=== PATIENT | male | born 1935 | race Caucasian/White ===

== ENCOUNTER 2018-08-01 03:26 | Emergency (ER) | payer MEDICARE, OTHER ==
[2018-08-01] MEDS ORDERED: Adacel Vial IM ONE ×2 (03:38→03:48)
--- NOTE | 2018-08-01 03:41 | ERPHSYRPT ---
- History of Present Illness Time Seen by Provider: 08/01/18 03:36 Source: patient Exam Limitations: no limitations (") Physician History: You have the patient is an 83-year-old male complaining that he lost his balance when he got up out of bed to use the bathroom. He fell striking the top of his forehead against the door frame causing a skin tear with bleeding. He did not lose consciousness. He is on aspirin for a blood thinner. His neck hurts but not badly. His last tetanus vaccination is unknown. His past medical history significant for HTN, GERD, and high cholesterol. Occurred: just prior to arrival Reason for Fall: lost balance, fell from standing pos Injuries/Pain Location: head, neck Loss of Consciousness: no loss of consciousness Quality: aching Severity of Pain-Max: mild Severity of Pain-Current: mild Modifying Factors: Improves With: nothing Associated Symptoms (Fall): headache, neck pain, No confusion, No lightheadedness, No slurred speech, No trouble walking, No vomiting Allergies/Adverse Reactions: No Known Drug Allergies Allergy (Verified 08/17/12 11:43) Home Medications: Amlodipine Besylate 10 mg [Norvasc 10 MG] DAILY 08/17/12 [History] Aspirin [Aspir 81] DAILY 08/17/12 [History] Flaxseed [Flaxseed Oil] DAILY 08/17/12 [History] Lisinopril [Prinivil] DAILY 08/17/12 [History] [place]-3 Fatty Acids/Fish Oil [Fish Oil 1,000 mg Capsule] DAILY 08/17/12 [History ] Omeprazole DAILY 08/17/12 [History] Pravastatin Sodium [Pravachol] HS 08/17/12 [History] Hx Influenza Vaccination/Date Given: Yes Hx Pneumococcal Vaccination/Date Given: Yes - Review of Systems Constitutional: No Fever, No Chills Eyes: No Symptoms Ears, Nose, & Throat: No Symptoms Respiratory: No Cough, No Dyspnea Cardiac: No Chest Pain, No Edema, No Syncope Abdominal/Gastrointestinal: No Abdominal Pain, No Nausea, No Vomiting, No Diarrhea Genitourinary Symptoms: No Dysuria Musculoskeletal: Fall, Injury Skin: Skin Lesions (skin tear) Neurological: Headache Psychological: No Symptoms Endocrine: No Symptoms Hematologic/Lymphatic: No Symptoms Immunological/Allergic: No Symptoms All Other Systems: Reviewed and Negative - Past Medical History Pertinent Past Medical History: Yes Neurological History: No Pertinent History ENT History: No Pertinent History Cardiac History: High Cholesterol, Hypertension Respiratory History: Emphysema Endocrine Medical History: No Pertinent History Musculoskeletal History: No Pertinent History GI Medical History: No Pertinent History History: No Pertinent History Psycho-Social History: No Pertinent History Male Reproductive Disorders: No Pertinent History - Past Surgical History Past Surgical History: Yes Neuro Surgical History: No Pertinent History Cardiac: Cardiac Catheterization Respiratory: No Pertinent History Gastrointestinal: Hernia Repair Genitourinary: Kidney Surgery Musculoskeletal: No Pertinent History Male Surgical History: No Pertinent History Other Surgical History: cyst removed from kidney - Social History Smoking Status: Never smoker Exposure to second hand smoke: Yes Drug Use: none - Nursing Vital Signs Nursing Vital Signs: Initial Vital Signs Temperature 97.5 F 08/01/18 03:26 Pulse Rate 62 08/01/18 03:26 Respiratory Rate 18 08/01/18 03:26 Blood Pressure 133/70 08/01/18 03:26 O2 Sat by Pulse Oximetry 95 08/01/18 03:26 Pain Scale Pain Intensity 3 - [place] Coma Score Best Eye Response ([place]): (4) open spontaneously Best Verbal Response ([place]): (5) oriented Best Motor Response ([place]): (6) obeys commands [place] Total: 15 - Physical Exam General Appearance: no apparent distress, alert Head Injury: lacerations (0.5 x 3 cm skin tear to upper forehead), tenderness Eye Exam: PERRL/EOMI ENT Exam: airway nml Neck Exam: normal inspection, No tenderness Respiratory/Chest Exam: normal breath sounds, No chest tenderness, No respiratory distress Cardiovascular Exam: normal heart sounds, regular rate/rhythm Gastrointestinal Exam: soft, No tenderness, No distention, No guarding, No ecchymosis Rectal Exam: not done Back Exam: normal inspection, No vertebral tenderness Extremity Exam: normal inspection, normal range of motion, pelvis stable, No deformities Neurologic Exam: alert, oriented x 3, cooperative, sensation nml, No motor deficits Skin Exam: normal color, warm, dry, abrasion (3 cm circular abrasion over left patella), laceration (skin tear to upper forehead) SpO2 Interpretation: normal Oxygen Delivery: Room Air - CT Exams Head CT Interpretation: Negative, Tele-radiologist Report (Per Dr Yanez), No Fracture, No/Intracranial Hemorrhag Cervical Spine CT Interpretation: Negative, Tele-radiologist Report (per Dr Yanez), No Fracture, No Subluxation Ordered Tests: Active Orders 24 hr Category Date Time Status Wound Care STAT Care 08/01/18 03:38 Active CERVICAL SPINE WO CONTRAST [CT] Stat Exams 08/01/18 03:38 Taken HEAD WITHOUT CONTRAST [CT] Stat Exams 08/01/18 03:38 Taken Medication Summary Discontinued Medications Generic Name Dose Route Start Last Admin Trade Name Freq PRN Reason Stop Dose Admin Diphtheria/Tetanus/Acell Pertussis 0.5 ml 08/01/18 03:38 08/01/18 03:49 Adacel Vial IM 08/01/18 03:39 0.5 ml .ONCE ONE Administration Diphtheria/Tetanus/Acell Pertussis Confirm 08/01/18 03:48 Adacel Vial Administered 08/01/18 03:49 Dose 0.5 ml IM .STK-MED ONE - Progress Progress: unchanged Progress Note: 08/01/18 05:24 Pt declines analgesics. Counseled pt/family regarding: diagnosis, rad results - Departure Time of Disposition: 05:25 Departure Disposition: Home Clinical Impression: Fall, Head contusion, Skin tear Condition: Stable Critical Care Time: No Referrals: FAISAL MCLEAN [Primary Care Provider] - Additional Instructions: You had a fall tonight that resulted in a head contusion and a skin tear area skin tear was repaired with Dermabond and Steri-Strips. The CT scan of your head and neck were both negative. Take Tylenol 1000 mg every 6 hours as needed for pain. You were given a tetanus vaccination. Follow-up as needed with your primary medical doctor.
[2018-08-01 05:37] VITALS: BP 178/83; PULSE 83; O2SAT 98
--- NOTE | 2018-08-01 08:49 | XRAY ---
Indication: Pain following fall. Multiple contiguous axial images obtained through the head without contrast. Comparison: None. Age-appropriate global atrophy and moderate periventricular degenerative micro-ischemia bilaterally. No acute intracranial hemorrhage, abnormal extra-axial fluid collection, or mass effect. Fourth ventricle is midline without hydrocephalus. Bony calvarium intact. Visualized paranasal sinuses and mastoid air cells are clear. Impression: Nonacute senile brain. Comment: Preliminary interpretation was made by [facility]. No discrepancy. CT DI 60.80
--- NOTE | 2018-08-01 08:53 | XRAY ---
Indication: Pain following fall. Multiple contiguous axial images obtained through the cervical spine. Sagittal and coronal reformatted images obtained. Comparison: None. Age-appropriate osteopenia. Axial images negative for acute fracture, suspicious bony lesions, or spinal canal stenosis. Mild C3-C6 degenerative endplate spurring and mild multilevel bilateral degenerative facet arthropathy. Also moderate atlantoaxial degenerative changes. Sagittal and coronal reformatted images demonstrates straightening of the mid cervical lordosis, positional versus paraspinal spasm. C3-C6 disc space narrowing. No acute compression fracture, subluxation, or jumped facet. Normal appearing craniocervical junction. Visualized noncontrasted soft tissues demonstrates minimal carotid calcifications bilaterally and tiny right apical pulmonary calcified granuloma. CT head reported separately. Impression: 1. Negative acute fracture/subluxation. Mid cervical lordotic straightening, positional versus paraspinal spasm. 2. Incidental osteopenia and multilevel degenerative changes. Comment: Preliminary interpretation was made by [facility]. No critical discrepancy. CT DI 66.87
== END 2018-08-01 05:36 | disposition home or self-care (01) ==
LOC: ED 03:26
DX: S00.93XA Contusion of unspecified part of head, initial encounter (principal); S01.01XA Laceration without foreign body of scalp, initial encounter; R51 Headache; M54.2 Cervicalgia; S80.212A Abrasion, left knee, initial encounter; W01.198A Fall on same level from slipping, tripping and stumbling with subsequent striking against other object, initial encounter; Y93.89 Activity, other specified; Y92.003 Bedroom of unspecified non-institutional (private) residence as the place of occurrence of the external cause; Z79.82 Long term (current) use of aspirin; Z79.899 Other long term (current) drug therapy
CPT/HCPCS: 12002; 70450; 72125; 90471; 90715; 99284

== ENCOUNTER 2019-08-14 01:11 | Emergency (ER) | payer MEDICARE, OTHER ==
[2019-08-14] MEDS ORDERED: Sodium Chloride 3 ML UD NEBULES IH ONE (01:50)
[2019-08-14] MEDS ORDERED: Racepinephrine INH Solution 2.25% IH ONE (01:50)
[2019-08-14] MEDS: Racepinephrine INH Solution 2.25% IH ONE (01:51)
[2019-08-14] MEDS ORDERED: solu-MEDROL 125 MG ONE ×2 (02:00→06:12)
[2019-08-14] MEDS: solu-MEDROL 125 MG IV ONE ×2 (02:02→06:13)
[2019-08-14 02:15] LABS: Hematocrit 39.4 % (42-50); Hemoglobin 13.1 gm/dl (12.5-18.0); Mean Corpuscular Hemoglobin 32.3 pg (26-32); Mean Corpuscular Hgb Concent. 33.2 g/dl (32-36); Mean Platelet Volume 9.9 fl (6-9.5); Platelet Count 207 K/mm3 (150-450); Red Blood Count 4.06 M/mm3 (4.1-5.6); Red Cell Distribution Width 12.7 % (11.5-14.0); White Blood Count 8.7 K/mm3 (4.0-10.5)
[2019-08-14 02:15] LABS: INFLUENZA A NEGATIVE (NEGATIVE); INFLUENZA B NEGATIVE (NEGATIVE); RESPIRATORY SYNCTIAL VIRUS NEGATIVE (Negative)
[2019-08-14 02:25] LABS: ALBUMIN 3.5 g/dL (3.5-5.0); ALKALINE PHOSPHATASE 59 U/L (38-126); ANION GAP 11.4 MEQ/L (5-15); BLOOD UREA NITROGEN 21 mg/dL (9-20); CHLORIDE 103 mmol/L (98-107); Carbon Dioxide 25 mmol/L (22-30); Creatinine 1 1.02 mg/dL (0.66-1.25); Glucose 114 mg/dL (74-106); Potassium 3.7 mmol/L (3.5-5.1); SGOT/AST 18 U/L (17-59); SGPT/ALT 11 U/L (0-50); SODIUM 136 mmol/L (137-145); Total Protein 7.1 g/dL (6.3-8.2)
[2019-08-14] MEDS ORDERED: ROCEPHIN 1 Gm-D5w 50 ml Bag** 1 G/50 ML IVPB IV ONE (03:26)
[2019-08-14] MEDS: ROCEPHIN 1 Gm-D5w 50 ml Bag** 1 G/50 ML IVPB IV STA (03:43)
[2019-08-14 04:39] LABS: BAND 1 % (0.0-2.0); Basophil 1 % (0.0-1.0); Eosinophil 8 % (0.00-3.0); Lymphocytes 34 % (24-44); Monocyte 4 % (0.0-12.0); Neutrophils 52 % (36.-66.); Total Cells Counted 100
[2019-08-14 04:40] LABS: Platelet Estimate NORMAL (NORMAL); Toxic Granulation RARE
[2019-08-14 06:04] VITALS: O2SAT 93
--- NOTE | 2019-08-14 06:18 | ERPHSYRPT ---
- History of Present Illness Time Seen by Provider: 08/14/19 01:50 Patient Subjective Stated Complaint: pt states that he was having trouble swollowing, pt states that he felt that something stuck in his throat, pt states that he threw up a brownish glob, pt states that he went [facility] for a bad tooth, pt state he was put on antibiotic, pt states that he live by himself and it scarred him because he could not catch his breath Triage Nursing Assessment: pt ambulated into the er, pt is axo x4, pt states unable to swollow, pt has swollen uvula, lung sounds clear, pt hypertensive Physician History: patient presents with a choking sensation in his throat and the feeling that his throat was swollen. He is on clindamycin for a recent dental infection but he describes swelling of the lips and mouth more consistent perhaps with angioedema. Patient is on lisinopril Timing/Duration: abrupt onset Severity: severe ENT Location: mouth, throat Prearrival Treatment: no prearrival treatment Modifying Factors: Improves With: nothing Associated Symptoms: facial pain/swelling Allergies/Adverse Reactions: No Known Drug Allergies Allergy (Verified 08/14/19 02:13) Home Medications: Amlodipine Besylate 10 mg [Norvasc 10 MG] 10 mg PO DAILY 08/17/12 [History] Aspirin [Aspir 81] DAILY 08/17/12 [History] Lisinopril [Prinivil] 10 mg PO BID 08/17/12 [History] Omeprazole DAILY 08/17/12 [History] Pravastatin Sodium [Pravachol] HS 08/17/12 [History] Clindamycin HCl 300 mg PO Q6H 08/14/19 [History] Umeclidinium Brm/Vilanterol Tr [Anoro Ellipta 62.5-25 Mcg INH] 1 puff IH DAILY 08/14/19 [History] Hx Tetanus, Diphtheria Vaccination/Date Given: Yes Hx Influenza Vaccination/Date Given: Yes Hx Pneumococcal Vaccination/Date Given: Yes - Review of Systems Constitutional: No Fever, No Chills Eyes: No Symptoms Ears, Nose, & Throat: Throat Swelling Respiratory: No Cough, No Dyspnea Cardiac: No Chest Pain, No Edema, No Syncope Abdominal/Gastrointestinal: No Abdominal Pain, No Nausea, No Vomiting, No Diarrhea Genitourinary Symptoms: No Dysuria Musculoskeletal: No Back Pain, No Neck Pain Skin: No Rash Neurological: No Dizziness, No Focal Weakness, No Sensory Changes Psychological: No Symptoms Endocrine: No Symptoms All Other Systems: Reviewed and Negative - Past Medical History Pertinent Past Medical History: Yes Neurological History: No Pertinent History ENT History: No Pertinent History Cardiac History: High Cholesterol, Hypertension Respiratory History: Emphysema Endocrine Medical History: No Pertinent History Musculoskeletal History: No Pertinent History GI Medical History: No Pertinent History History: No Pertinent History Psycho-Social History: No Pertinent History Male Reproductive Disorders: No Pertinent History - Past Surgical History Past Surgical History: Yes Neuro Surgical History: No Pertinent History Cardiac: Cardiac Catheterization Respiratory: No Pertinent History Gastrointestinal: Hernia Repair Genitourinary: Kidney Surgery Musculoskeletal: No Pertinent History Male Surgical History: No Pertinent History Other Surgical History: cyst removed from kidney - Social History Smoking Status: Never smoker Exposure to second hand smoke: No Drug Use: none Patient Lives Alone: No - Nursing Vital Signs Nursing Vital Signs: Initial Vital Signs Temperature 97.9 F 08/14/19 01:35 Pulse Rate 71 08/14/19 01:35 Respiratory Rate 16 08/14/19 01:35 Blood Pressure 148/88 08/14/19 01:35 O2 Sat by Pulse Oximetry 95 08/14/19 01:35 - Physical Exam General Appearance: mild distress, alert Eye Exam: bilateral eye: PERRL, EOMI Nasal Exam: normal inspection Throat Exam: moist mucus membranes, uvula swelling, No tonsillar exudate Neck Exam: supple Cardiovascular/Respiratory Exam: normal breath sounds, regular rate/rhythm Abdominal Exam: non-tender, soft Neurologic Exam: alert, oriented x 3, sensation nml, No motor deficits Skin Exam: normal color, warm, dry SpO2: 93 - Course Nursing assessment & vital signs reviewed: Yes Ordered Tests: Active Orders 24 hr Category Date Time Status CHEST 1 VIEW (PORTABLE) Stat Exams 08/14/19 01:42 Taken CBC W DIFF Stat Lab 08/14/19 02:11 Completed CMP Stat Lab 08/14/19 02:11 Completed Manual Differential NC Stat Lab 08/14/19 02:11 Completed Respiratory Therapy Assessment DAILY RT 08/14/19 01:55 Active Medication Summary Generic Name Dose Route Start Last Admin Trade Name Freq PRN Reason Stop Dose Admin Methylprednisolone Sodium Succinate 125 mg 08/14/19 06:11 Solu-Medrol 125 Mg IV 08/14/19 06:12 STAT ONE Discontinued Medications Generic Name Dose Route Start Last Admin Trade Name [place] PRN Reason Stop Dose Admin Epinephrine 0.5 ml 08/14/19 01:40 08/14/19 01:51 Racepinephrine Inh Solution 2.25% IH 08/14/19 01:41 0.5 ml STAT ONE Administration Epinephrine Confirm 08/14/19 01:50 Racepinephrine Inh Solution 2.25% Administered 08/14/19 01:51 Dose 0.5 ml IH .STK-MED ONE Ceftriaxone Sodium/Dextrose 1 g in 50 mls @ 100 mls/hr 08/14/19 03:17 04:55 Rocephin 1 Gm-D5w 50 Ml Bag IV 08/14/19 03:46 Infused STAT STA Infusion Ceftriaxone Sodium/Dextrose Confirm 08/14/19 03:26 Rocephin 1 Gm-D5w 50 Ml Bag Administered 08/14/19 03:27 Dose 1 g in 50 mls @ ud IV .STK-MED ONE Methylprednisolone Sodium Succinate 125 mg 08/14/19 01:44 08/14/19 02:02 Solu-Medrol 125 Mg IV 08/14/19 01:45 125 mg STAT ONE Administration Methylprednisolone Sodium Succinate Confirm 08/14/19 02:00 Solu-Medrol 125 Mg Administered 08/14/19 02:01 Dose 125 mg .ROUTE .STK-MED ONE Sodium Chloride Confirm 08/14/19 01:50 Sodium Chloride 3 Ml Ud Nebules Administered 08/14/19 01:51 Dose 3 ml IH .STK-MED ONE Lab/Rad Data: Laboratory Result Diagrams 08/14/19 02:11 08/14/19 02:11 Laboratory Results 08/14/19 08/14/19 08/14/19 Range/Units 02:11 02:11 01:41 WBC 8.7 (4.0-10.5) K/mm3 RBC 4.06 L (4.1-5.6) M/mm3 Hgb 13.1 (12.5-18.0) gm/dl Hct 39.4 L (42-50) % MCV 97.0 (78-100) fl MCH 32.3 H (26-32) pg MCHC 33.2 (32-36) g/dl RDW 12.7 (11.5-14.0) % Plt Count 207 (150-450) K/mm3 MPV 9.9 H (6-9.5) fl Segmented Neutrophils 52 (36.-66.) % Band Neutrophils 1 (0.0-2.0) % Lymphocytes (Manual) 34 (24-44) % Monocytes (Manual) 4 (0.0-12.0) % Eosinophils (Manual) 8 H (0.00-3.0) % Basophils (Manual) 1 (0.0-1.0) % Toxic Granulation RARE Platelet Estimate NORMAL (NORMAL) RBC Morphology NORMAL Sodium 136 L (137-145) mmol/L Potassium 3.7 (3.5-5.1) mmol/L Chloride 103 (98-107) mmol/L Carbon Dioxide 25 (22-30) mmol/L Anion Gap 11.4 (5-15) MEQ/L BUN 21 H (9-20) mg/dL Creatinine 1.02 (0.66-1.25) mg/dL Estimated GFR > 60.0 ML/MIN Glucose 114 H (74-106) mg/dL Calcium 9.0 (8.4-10.2) mg/dL Total Bilirubin 0.50 (0.2-1.3) mg/dL AST 18 (17-59) U/L ALT 11 (0-50) U/L Alkaline Phosphatase 59 (38-126) U/L Serum Total Protein 7.1 (6.3-8.2) g/dL Albumin 3.5 (3.5-5.0) g/dL Influenza Type A Ag (NEGATIVE) Influenza Type B Ag (NEGATIVE) RSV (PCR) (Negative) Group A Strep Antibody NEGATIVE (NEGATIVE) 08/14/19 Range/Units 01:41 WBC (4.0-10.5) K/mm3 RBC (4.1-5.6) M/mm3 Hgb (12.5-18.0) gm/dl Hct (42-50) % MCV (78-100) fl MCH (26-32) pg MCHC (32-36) g/dl RDW (11.5-14.0) % Plt Count (150-450) K/mm3 MPV (6-9.5) fl Segmented Neutrophils (36.-66.) % Band Neutrophils (0.0-2.0) % Lymphocytes (Manual) (24-44) % Monocytes (Manual) (0.0-12.0) % Eosinophils (Manual) (0.00-3.0) % Basophils (Manual) (0.0-1.0) % Toxic Granulation Platelet Estimate (NORMAL) RBC Morphology Sodium (137-145) mmol/L Potassium (3.5-5.1) mmol/L Chloride (98-107) mmol/L Carbon Dioxide (22-30) mmol/L Anion Gap (5-15) MEQ/L BUN (9-20) mg/dL Creatinine (0.66-1.25) mg/dL Estimated GFR ML/MIN Glucose (74-106) mg/dL Calcium (8.4-10.2) mg/dL Total Bilirubin (0.2-1.3) mg/dL AST (17-59) U/L ALT (0-50) U/L Alkaline Phosphatase (38-126) U/L Serum Total Protein (6.3-8.2) g/dL Albumin (3.5-5.0) g/dL Influenza Type A Ag NEGATIVE (NEGATIVE) Influenza Type B Ag NEGATIVE (NEGATIVE) RSV (PCR) NEGATIVE (Negative) Group A Strep Antibody (NEGATIVE) - Progress Progress: improved - Departure Departure Disposition: Home Clinical Impression: Angioedema Condition: Good Critical Care Time: No Referrals: FAISAL MCLEAN [Primary Care Provider] - Additional Instructions: Stop use of Lisinopril. See Dr Mclean within a week. Return to ER for any problem Prescriptions: Cephalexin Mh 500 mg [Keflex 500 mg] 500 mg PO TID #21 capsule Metoprolol Succinate 25 mg Xl* [Toprol-Xl 25MG Tablets] 25 mg PO DAILY 30 Days #30 tab Prednisone 5 mg [Deltasone 5 mg] 5 mg PO TID #12 tablet
[2019-08-14 06:40] VITALS: BP 169/75; PULSE 69
--- NOTE | 2019-08-14 09:31 | XRAY ---
Indication: Sore throat. Comparison: August 16, 2011. Portable chest underinflated again with bibasilar subsegmental atelectasis/scarring and right apical calcified granuloma. No focal infiltrate, consolidation, or large effusion. Heart is not enlarged. Bony thorax intact again with mild degenerative changes. Impression: Nonacute underinflated chest with chronic features.
== END 2019-08-14 06:40 | disposition home or self-care (01) ==
LOC: ED 01:11
DX: T78.3XXA Angioneurotic edema, initial encounter (principal)
CPT/HCPCS: 36415; 71045; 80053; 85025; 87631; 87651; 94640; 96374; 99284; J0696; J2930

== ENCOUNTER 2019-08-28 07:25 | Day surgery (SDC) | payer MEDICARE, OTHER ==
[~2019-08-28 07:25] MED LIST: Ak-Dilate OPHTHALMIC*** 1.065 ML, Cyclogyl 1% OPHTH SOL 5 ML 1.065 ML, GATIFLOXACIN 0.5... OP ONE; Lactated Ringers 1,000 ML IV SCH; NON-FORMULARY ITEM OP ONE; TETRACAINE 0.5% STERI-UNIT SOL OP ONE
[2019-08-28] MEDS ORDERED: Lactated Ringers 1,000 ML IV ONE (07:38)
[2019-08-28] MEDS ORDERED: ACETAZOLAMIDE 250 MG TABLET PO ONE (09:00)
[2019-08-28] MEDS ORDERED: Zofran 4 MG/2 ML VIAL IV PRN (09:00)
[2019-08-28] MEDS ORDERED: NON-FORMULARY ITEM IJ ONE (10:00)
[2019-08-28] MEDS ORDERED: BSS 500 ML, Fortaz/Tazicef 1 GM** 0.2 G IO ONE ×2 (10:00)
[2019-08-28] MEDS ORDERED: LIDOCAINE HCL 1% AMPUL 5 ML IJ ONE (10:00)
[2019-08-28] MEDS ORDERED: BETADINE 5% OPHTHALMIC 30 ML OP ONE (10:00)
[2019-08-28] MEDS ORDERED: Epinephrine Preservative Free 1 MG/ML INTRAOP ONE (10:00)
[2019-08-28] MEDS ORDERED: DIPRIVAN 200 MG/20 ML IV ONE ×2 (10:24→10:38)
[2019-08-28] MEDS ORDERED: APRESOLINE 20 MG/ML INJ IV ONE (11:41)
--- NOTE | 2019-08-28 11:49 | OP ---
DATE/TIME OF OPERATION: 08/28/2019 1024 TIME DICTATED: 1130 PREOPERATIVE DIAGNOSIS: Senile cataract of left eye. POSTOPERATIVE DIAGNOSIS: Senile cataract of left eye. SURGEON: Alanis Bird MD VISITING HOUSEKEEPER: None. OPERATION: Cataract extraction of left eye with an intraocular lens implant. STANDARD __X___ COMPLEX ANESTHESIA: MAC. ___X__ Monitored anesthesia care in combination with topical and intra-cameral anesthesia (because of the established specific risk of reflux, arrhythmias, or an anxiety attack associated with ocular manipulation as well as difficulty of the telesales specialist to manage such potentially catastrophic events while simultaneously attempting to complete the surgical procedure, it was deemed necessary for the patient's safety to have an anesthesiologist or a nurse hide worker present during the procedure whenever possible. The anesthesiologist or the nurse hide worker was utilized to monitor and regulate the intravenous sedation of the patient, so the patient was cooperative, relaxed, and comfortable). Topical anesthesia using Tetracaine eye drops together with intra cameral anesthesia using Lidocaine 1% MPF. The nurse was utilized to monitor the patient. ANESTHESIA PROVIDER: Art James CRNA. COMPLICATIONS: None. BLOOD LOSS: None. INDICATIONS: The patient is undergoing cataract surgery in the hopes of eliminating the visual complaints and difficulty. PROCEDURE: After arriving at the facility's outpatient surgery area, an IV was started; the patient was given 5 mg of p.o. Versed. (If an anesthesia provider was not monitoring the patient) The patient was then given topical anesthetic Tetracaine eye drops. A cotton pellet was soaked into a solution of a combination of Zymaxid 0.5%, Pieter-Synephrine 2.5% and Ocufen (other drops might have been substituted referenced in the patient's record). The pellet was inserted by the RN into the lower conjunctival cul-de-sac with a sterile forceps and left for 20 minutes. The pellet was then removed by the RN with a sterile forceps before taking the patient to the operating room. The preoperative area nurse identified the patient and marked the correct eye to be operated on. I identified the correct eye to be operated on and marked it appropriately in the outpatient surgery area. The patient was then taken into the operating room. Tetracaine eye drops were installed again in the correct eye. The eyelids and the lashes and the lid margins were scrubbed with Betadine solution. One drop of the diluted Betadine solution was placed in the conjunctival cul-de-sac for 45 seconds and then was irrigated. A drop of Tetracaine Gel was placed in the conjunctival cul-de-sac. The patient's forehead was taped to secure it during the procedure. The patient was monitored. The patient was then draped in the usual way for this procedure. An eye speculum was used to separate the eyelids. The eye was then fixated and a temporal 2.5 mm incision was made in the clear cornea temporally at the limbus. Through the incision, 0.25 cc of 1% non-preserved lidocaine was injected into the anterior chamber for intracameral anesthesia. The anterior chamber was then filled with viscoelastic. The pupil was small. I felt that it would be safer to mechanically dilate the pupil. A Malyugin ring was used at this point which dilated the pupil. That was removed at the end of the procedure prior to aspiration of the viscoelastic from the anterior chamber and posterior to the intraocular lens implant. The cataract had a great amount of cortical changes. That rendered seeing the anterior capsule difficult for a safe performance of an anterior capsulotomy. I injected an air bubble into the anterior chamber. I then injected 1 ML of vision blue solution into the anterior chamber. The vision blue solution was irrigated from the anterior chamber after 30 seconds. The anterior capsule was stained which facilitated performing the anterior capsulotomy safely. After that was completed, a cystotome was introduced into the anterior chamber and a round anterior capsulotomy was performed. The capsule was removed by a forceps. Hydrodissection was next carried utilizing a 25-gauge cannula and balanced salt solution to delineate the cortical material from the capsule and the nucleus from the cortical material. The nucleus was rotated freely into the capsular bag with no difficulty. The phaco tip of the [employer] Phacoemulsifier was introduced into the anterior chamber and two grooves were made into the nucleus 90 degrees apart. Using two spatulas resulted into the nucleus being fractured into four quadrants. The phaco tip was then used to remove each quadrant of the nucleus. Viscoelastic was used during this process to protect the corneal endothelium. Once the entire nucleus was removed, the phaco tip then was removed and the irrigation tip was introduced into the eye and the cortex was removed. The posterior capsule was polished. It was noticed that there was a tear into the posterior capsule with few vitreous strands into the pupil plan. An anterior vitrectomy was performed. A 21.00 diopter, [id number], posterior chamber lens implant, was inspected and found to be grossly normal. The implant was inserted into the implant injector cartridge; Viscoelastic again was introduced into the anterior chamber, which filled the capsular bag. The implant injector's cartridge tip was placed at the limbal wound and the posterior chamber implant was released into the capsular bag and rotated appropriately. The implant was found to be into the capsular bag and it was centered. __X__ 0.2 ml of Tri-Moxi was introduced via 27 gauge cannula into the vitreous cavity through the ciliary processes. Viscoelastic was aspirated from the anterior chamber and posterior to the intraocular lens implant from the capsular bag using the irrigating tip. The anterior chamber was irrigated and filled with 5 cc antibiotic solution (500 cc of BSS plus 2 ml of Fortaz 100 mg/ml) ( if patient was not allergic to the medication). The lips of the corneal incision were hydrated using BSS solution. The anterior chamber was checked and found to be water tight. One drop each of antibiotic, steroid and NSAID drops (refer to chart for drops used) were placed in the conjunctival cul-de-sac of the operated eye. Patient tolerated the procedure quite well and left the operating room in satisfactory condition. DISCHARGE SUMMARY: The patient was released in stable condition. The patient and those with the patient were given an instruction sheet as of how to care for the eye after surgery as well as counseling on any abnormal laboratory studies by the postoperative RN. The patient was also given an appointment card for follow-up in the office and is to call immediately for any difficulties including but not limited to pain in the eye, decreased vision, discharge from the eye, headache and or fever. DISCHARGE DIAGNOSIS: Pseudophakia of left eye.
[2019-08-28 12:04] VITALS: O2SAT 95
[2019-08-28 12:19] VITALS: BP 146/75; PULSE 68
== END 2019-08-28 12:45 | disposition home or self-care (01) ==
LOC: SDC 07:25
PROVIDERS: ATTEND Ophthalmology
DX: H25.812 Combined forms of age-related cataract, left eye (principal); J44.9 Chronic obstructive pulmonary disease, unspecified; I10 Essential (primary) hypertension; E78.00 Pure hypercholesterolemia, unspecified; E07.9 Disorder of thyroid, unspecified; Z79.899 Other long term (current) drug therapy
CPT/HCPCS: 99100; C1780; J0171; J0360; J2704; A9270-GY

== ENCOUNTER 2019-10-02 07:57 | Day surgery (SDC) | payer MEDICARE, OTHER ==
[2019-10-02] MEDS ORDERED: Lactated Ringers 1,000 ML IV ONE (08:04)
[2019-10-02] MEDS ORDERED: Zofran 4 MG/2 ML VIAL IV PRN (09:00)
[2019-10-02] MEDS ORDERED: ACETAZOLAMIDE 250 MG TABLET PO ONE (09:00)
[2019-10-02] MEDS ORDERED: Epinephrine Preservative Free 1 MG/ML INTRAOP ONE (10:00)
[2019-10-02] MEDS ORDERED: LIDOCAINE HCL 1% AMPUL 5 ML IJ ONE (10:00)
[2019-10-02] MEDS ORDERED: BETADINE 5% OPHTHALMIC 30 ML OP ONE (10:00)
[2019-10-02] MEDS ORDERED: BSS 500 ML, Fortaz/Tazicef 1 GM** 0.2 G IO ONE ×2 (10:00)
[2019-10-02] MEDS ORDERED: DIPRIVAN 200 MG/20 ML IV ONE (10:57)
[2019-10-02 12:12] VITALS: BP 169/96; PULSE 67; O2SAT 97
--- NOTE | 2019-10-02 13:52 | OP ---
DATE/TIME OF OPERATION: 10/02/2019 1057 TIME DICTATED: 1256 PREOPERATIVE DIAGNOSIS: Senile cataract of right eye. POSTOPERATIVE DIAGNOSIS: Senile cataract of right eye. SURGEON: Alanis Bird MD BRAKE RELINER: None. OPERATION: Cataract extraction of right eye with an intraocular lens implant. STANDARD __X__ COMPLEX ANESTHESIA: MAC. ___X___ Monitored anesthesia care in combination with topical and intra-cameral anesthesia (because of the established specific risk of reflux, arrhythmias, or an anxiety attack associated with ocular manipulation as well as difficulty of the software consultant to manage such potentially catastrophic events while simultaneously attempting to complete the surgical procedure, it was deemed necessary for the patient's safety to have an anesthesiologist or a nurse dean of education present during the procedure whenever possible. The anesthesiologist or the nurse dean of education was utilized to monitor and regulate the intravenous sedation of the patient, so the patient was cooperative, relaxed, and comfortable). Topical anesthesia using Tetracaine eye drops together with intra cameral anesthesia using Lidocaine 1% MPF. The nurse was utilized to monitor the patient. ANESTHESIA PROVIDER: Art James CRNA. COMPLICATIONS: None. BLOOD LOSS: None. INDICATIONS: The patient is undergoing cataract surgery in the hopes of eliminating the visual complaints and difficulty. PROCEDURE: After arriving at the facility's outpatient surgery area, an IV was started; the patient was given 5 mg of p.o. Versed. (If an anesthesia provider was not monitoring the patient) The patient was then given topical anesthetic Tetracaine eye drops. A cotton pellet was soaked into a solution of a combination of Zymaxid 0.5%, Pieter-Synephrine 2.5% and Ocufen (other drops might have been substituted referenced in the patient's record). The pellet was inserted by the RN into the lower conjunctival cul-de-sac with a sterile forceps and left for 20 minutes. The pellet was then removed by the RN with a sterile forceps before taking the patient to the operating room. The preoperative area nurse identified the patient and marked the correct eye to be operated on. I identified the correct eye to be operated on and marked it appropriately in the outpatient surgery area. The patient was then taken into the operating room. Tetracaine eye drops were installed again in the correct eye. The eyelids and the lashes and the lid margins were scrubbed with Betadine solution. One drop of the diluted Betadine solution was placed in the conjunctival cul-de-sac for 45 seconds and then was irrigated. A drop of Tetracaine Gel was placed in the conjunctival cul-de-sac. The patient's forehead was taped to secure it during the procedure. The patient was monitored. The patient was then draped in the usual way for this procedure. An eye speculum was used to separate the eyelids. The eye was then fixated and a temporal 2.5 mm incision was made in the clear cornea temporally at the limbus. Through the incision, 0.25 cc of 1% non-preserved lidocaine was injected into the anterior chamber for intracameral anesthesia. The anterior chamber was then filled with viscoelastic. The pupil was small. I felt that it would be safer to mechanically dilate the pupil. A Malyugin ring was used at this point which dilated the pupil. That was removed at the end of the procedure prior to aspiration of the viscoelastic from the anterior chamber and posterior to the intraocular lens implant. The cataract had a great amount of cortical changes. That rendered seeing the anterior capsule difficult for a safe performance of an anterior capsulotomy. I injected an air bubble into the anterior chamber. I then injected 1 ML of vision blue solution into the anterior chamber. The vision blue solution was irrigated from the anterior chamber after 30 seconds. The anterior capsule was stained which facilitated performing the anterior capsulotomy safely. After that was completed, a cystotome was introduced into the anterior chamber and a round anterior capsulotomy was performed. The capsule was removed by a forceps. Hydrodissection was next carried utilizing a 25-gauge cannula and balanced salt solution to delineate the cortical material from the capsule and the nucleus from the cortical material. The nucleus was rotated freely into the capsular bag with no difficulty. The phaco tip of the [employer] Phacoemulsifier was introduced into the anterior chamber and two grooves were made into the nucleus 90 degrees apart. Using two spatulas resulted into the nucleus being fractured into four quadrants. The phaco tip was then used to remove each quadrant of the nucleus. Viscoelastic was used during this process to protect the corneal endothelium. Once the entire nucleus was removed, the phaco tip then was removed and the irrigation tip was introduced into the eye and the cortex was removed. The posterior capsule was polished. It was noticed that there was a tear into the posterior capsule with few vitreous strands into the pupil plan. An anterior vitrectomy was performed. A 22.00 diopter, [id number], posterior chamber lens implant, was inspected and found to be grossly normal. The implant was inserted into the implant injector cartridge; Viscoelastic again was introduced into the anterior chamber, which filled the capsular bag. The implant injector's cartridge tip was placed at the limbal wound and the posterior chamber implant was released into the capsular bag and rotated appropriately. The implant was found to be into the capsular bag and it was centered. ___X__ 0.2 ml of Tri-Moxi was introduced via 27 gauge cannula into the vitreous cavity through the ciliary processes. Viscoelastic was aspirated from the anterior chamber and posterior to the intraocular lens implant from the capsular bag using the irrigating tip. The anterior chamber was irrigated and filled with 5 cc antibiotic solution (500 cc of BSS plus 2 ml of Fortaz 100 mg/ml) ( if patient was not allergic to the medication). The lips of the corneal incision were hydrated using BSS solution. The anterior chamber was checked and found to be water tight. One drop each of antibiotic, steroid and NSAID drops (refer to chart for drops used) were placed in the conjunctival cul-de-sac of the operated eye. Patient tolerated the procedure quite well and left the operating room in satisfactory condition. DISCHARGE SUMMARY: The patient was released in stable condition. The patient and those with the patient were given an instruction sheet as of how to care for the eye after surgery as well as counseling on any abnormal laboratory studies by the postoperative RN. The patient was also given an appointment card for follow-up in the office and is to call immediately for any difficulties including but not limited to pain in the eye, decreased vision, discharge from the eye, headache and or fever. DISCHARGE DIAGNOSIS: Pseudophakia of right eye.
== END 2019-10-02 12:32 | disposition home or self-care (01) ==
LOC: SDC 07:57
PROVIDERS: ATTEND Ophthalmology
DX: H25.9 Unspecified age-related cataract (principal); J44.9 Chronic obstructive pulmonary disease, unspecified; I10 Essential (primary) hypertension; K21.9 Gastro-esophageal reflux disease without esophagitis; E07.9 Disorder of thyroid, unspecified; E78.00 Pure hypercholesterolemia, unspecified
CPT/HCPCS: 99100; C1780; J0171; J2704; A9270-GY

== ENCOUNTER 2019-10-04 02:04 | Emergency (ER) | payer MEDICARE, OTHER ==
--- NOTE | 2019-10-04 02:15 | ERPHSYRPT ---
- History of Present Illness Time Seen by Provider: 10/04/19 03:40 Source: patient Exam Limitations: no limitations Physician History: Is an 84-year-old white male who out of bed and fell hitting his head on the corner of his bedside table. He did not lose consciousness. Patient is on some anticoagulation therapy. Patient does have a laceration on the side of his right confucianism. It bled initially but is not bleeding on arrival to the emergency department. Patient also suffered a skin tear to his right forearm. He has full range of motion of his right forearm and has no significant pain present. There is no active bleeding here. Timing/Duration: today Severity: mild Apparent Injury: yes (Laceration to the right confucianism region) Associated Symptoms: other (None) Chemical Exposure: No Trauma: Yes (Not to his right eye) Allergies/Adverse Reactions: No Known Drug Allergies Allergy (Verified 10/02/19 08:20) Home Medications: Aspirin [Aspir 81] 81 mg DAILY 08/17/12 [History] Omeprazole 40 mg DAILY 08/17/12 [History] Pravastatin Sodium [Pravachol] 40 mg HS 08/17/12 [History] Umeclidinium Brm/Vilanterol Tr [Anoro Ellipta 62.5-25 Mcg INH] 1 puff IH DAILY 08/14/19 [History] Albuterol Sulfate [Albuterol Sulfate Hfa] 8.5 gm IH DAILY 08/23/19 [History] B12/Levomefolate Calcium/B-6 [Foltx Tablet] 1 each PO DAILY 08/23/19 [History] Carvedilol 6.25 mg [Coreg 6.25 MG] 6.25 mg PO BID 08/23/19 [History] Cholecalciferol (Vitamin D3) [D3-2000] 125 mg PO DAILY 08/23/19 [History] Duloxetine HCl 30 mg [Cymbalta 30 MG Capsule] 30 mg PO DAILY 08/23/19 [ History] Levothyroxine Sodium 50 Mcg [Synthroid 50 Mcg] 50 mcg PO DAILY 08/23/19 [ History] [place] Fruit/Zinc Picoli [Saw [place] 450 mg Capsule] 450 mg DAILY [History] Calcium/Magnesium/Vitamin D3 [Bryn-Mag Complex 300-150 mg Tab] 1 each PO DAILY [History] Sennosides/Docusate Sodium [Dok Plus Tablet] 1 each PO BID 08/28/19 [History] polyethylene glycoL 3350 [Polyethylene Glycol 3350] 119 gm PO DAILY 08/28/19 [ History] Hydrochlorothiazide 12.5 mg PO DAILY 10/02/19 [History] Hx Tetanus, Diphtheria Vaccination/Date Given: Yes Hx Influenza Vaccination/Date Given: Yes Hx Pneumococcal Vaccination/Date Given: Yes - Review of Systems Constitutional: No Symptoms Eyes: No Symptoms Ears, Nose, & Throat: No Symptoms Respiratory: No Symptoms Cardiac: No Symptoms Abdominal/Gastrointestinal: No Symptoms Genitourinary Symptoms: No Symptoms Musculoskeletal: No Symptoms Skin: Other (Laceration to the right temporal region) Neurological: No Symptoms Psychological: No Symptoms Endocrine: No Symptoms Hematologic/Lymphatic: No Symptoms Immunological/Allergic: No Symptoms All Other Systems: Reviewed and Negative - Past Medical History Pertinent Past Medical History: Yes Neurological History: No Pertinent History ENT History: Cataracts Cardiac History: High Cholesterol, Hypertension Respiratory History: COPD, Emphysema, Sleep Apnea Endocrine Medical History: No Pertinent History Musculoskeletal History: No Pertinent History GI Medical History: GERD History: No Pertinent History Psycho-Social History: Depression Male Reproductive Disorders: No Pertinent History - Past Surgical History Past Surgical History: Yes Neuro Surgical History: No Pertinent History Cardiac: Cardiac Catheterization Respiratory: No Pertinent History Gastrointestinal: Hernia Repair Genitourinary: Kidney Surgery Musculoskeletal: No Pertinent History Male Surgical History: No Pertinent History Other Surgical History: cyst removed from kidney, IOL right eye Aug 2019 - Social History Smoking Status: Never smoker Exposure to second hand smoke: No Drug Use: none Patient Lives Alone: No - Nursing Vital Signs Nursing Vital Signs: Initial Vital Signs Temperature 97.7 F 10/04/19 02:44 Pulse Rate 64 10/04/19 02:44 Respiratory Rate 18 10/04/19 02:44 Blood Pressure 168/88 10/04/19 02:44 O2 Sat by Pulse Oximetry 96 10/04/19 02:44 Pain Scale Pain Intensity 1 - Physical Exam General Appearance: no apparent distress, alert, anxiety Eye Exam: bilateral eye: normal inspection, PERRL, EOMI Ears, Nose, Throat Exam: normal ENT inspection, moist mucous membranes Neck Exam: normal inspection, non-tender, supple, full range of motion Respiratory Exam: No chest tenderness Gastrointestinal Exam: No tenderness Extremity Exam: normal range of motion, pelvis stable, other (Superficial skin tear right forearm) Neurologic: alert, oriented x 3, cooperative, registered nurse cardiac telemetry II-XII nml as tested, normal mood/affect, nml cerebellar function, nml station & gait Skin Exam: laceration (Vertically oriented 2-1/2 cm laceration right temporal region. Not actively bleeding no foreign body present. Base is visible.) Lymphatic: No adenopathy SpO2 Interpretation: normal O2 Delivery: Room Air - Course Nursing assessment & vital signs reviewed: Yes Ordered Tests: Active Orders 24 hr Category Date Time Status HEAD WITHOUT CONTRAST [CT] Stat Exams 10/04/19 02:47 Taken - Progress Progress: improved, re-examined Progress Note: 10/04/19 03:52 Procedure note: Patient laceration site of his right confucianism was prepped with saline and Hibiclens solution. The laceration site was anesthetized locally with 1% lidocaine plain. The wound was dried with 4 x 4 gauze. 4 simple interrupted sutures of 4-0 Prolene was used to close the laceration. The laceration repair site was cleaned and dried and antibiotic ointment was placed overlying this. There were no complications the patient told procedure well patient was discharged home 10/04/19 03:54 CAT scan of the head reveals no acute intracranial process. There is mild periorbital swelling present on the right side Counseled pt/family regarding: diagnosis, need for follow-up, rad results - Departure Departure Disposition: Home Clinical Impression: Fall, Laceration of head, Skin tear Condition: Stable Critical Care Time: No Referrals: FAISAL MCLEAN [Primary Care Provider] - Additional Instructions: Keep abrasion and right confucianism laceration site dry for 24 hours. After 24 hours , may wash the site with soap and water. After each washing and drying, may apply antibiotic ointment to area. Return to the emergency room for suture removal in 7 days. Avoid direct sunlight to the abrasion site on the forehead and confucianism regions.
[2019-10-04 03:08] VITALS: O2SAT 96
[2019-10-04] MEDS ORDERED: BACIGUENT PACKET TP ONE (03:56)
[2019-10-04] MEDS ORDERED: XYLOCAINE 1% HCL 20 ML MDV IJ ONE (03:56)
[2019-10-04 04:34] VITALS: BP 194/91; PULSE 62
--- NOTE | 2019-10-04 09:11 | XRAY ---
Indication: Right supraorbital laceration and following fall. Multiple contiguous axial images obtained through the head without contrast. Comparison: August 01, 2018. Again age-appropriate global atrophy and moderate periventricular degenerative micro-ischemia bilaterally. No acute intracranial hemorrhage, abnormal extra-axial fluid collection, or mass effect. Fourth ventricle is midline without hydrocephalus. Small right supraorbital soft tissue swelling/laceration. Bony calvarium intact. Floor of the left maxillary sinus demonstrates partially visualized 1.5 cm polyp/retention cyst. Minimal mucosal thickening of both maxillary sinuses. Mastoid air cells are clear. Impression: Paranasal sinus disease and right supraorbital soft tissue swelling/laceration. Continued nonacute senile brain. Comment: Preliminary interpretation was made by C. No critical discrepancy.
== END 2019-10-04 04:34 | disposition home or self-care (01) ==
LOC: ED 02:04
DX: S01.81XA Laceration without foreign body of other part of head, initial encounter (principal); S51.811A Laceration without foreign body of right forearm, initial encounter; W22.03XA Walked into furniture, initial encounter; Z79.899 Other long term (current) drug therapy; E78.00 Pure hypercholesterolemia, unspecified; I10 Essential (primary) hypertension; Z79.01 Long term (current) use of anticoagulants
CPT/HCPCS: 12011; 70450; 96372; 99284; A9270-GY

== ENCOUNTER 2020-11-06 14:22 | Inpatient (IN) | payer MEDICARE, OTHER ==
--- NOTE | 2020-11-06 14:43 | ERPHSYRPT ---
- History of Present Illness Time Seen by Provider: 11/06/20 14:40 Source: patient Exam Limitations: no limitations Patient Subjective Stated Complaint: pt here for a fall today, he states he got out of chair to fasr and kness got weak and landed on floor, hit head on [employer] rack , son thinks he might have passed out Triage Nursing Assessment: pt aklert, walked in, face mask in place, resp easy, skin w/d/p. has bruising to left ear from today as well as to rigth wrist, has old bruising to left arm, Physician History: Patient is an 85-year-old male presents to our ED with complaints of syncope and headache. Patient states he was transitioning from sit to stand out of a chair when he became lightheaded and weak. Patient fell onto his knees. Patient hit his head on a magazine rack. No neck pain. Cervical spine cleared clinically. Headache is a global ache. No focal or lateralizing symptoms. No associated numbness tingling or weakness. The fall was not associated with chest pain or shortness of breath. Patient denies chest pain at this time. No fever. No nausea or vomiting. No diarrhea. No rash. Patient voices no other complaints or concerns at this time. Timing/Duration: today Severity: moderate Modifying Factors: Improves With: nothing Associated Symptoms: denies symptoms Allergies/Adverse Reactions: No Known Drug Allergies Allergy (Verified 11/06/20 14:41) Home Medications: Aspirin [Aspir 81] 81 mg DAILY 08/17/12 [History] Omeprazole 40 mg DAILY 08/17/12 [History] Pravastatin Sodium [Pravachol] 40 mg HS 08/17/12 [History] Umeclidinium Brm/Vilanterol Tr [Anoro Ellipta 62.5-25 Mcg INH] 1 puff IH DAILY 08/14/19 [History] Albuterol Sulfate [Albuterol Sulfate Hfa] 8.5 gm IH DAILY 08/23/19 [History] B12/Levomefolate Calcium/B-6 [Foltx Tablet] 1 each PO DAILY 08/23/19 [History] Carvedilol 6.25 mg [Coreg 6.25 MG] 6.25 mg PO BID 08/23/19 [History] Cholecalciferol (Vitamin D3) [D3-2000] 125 mg PO DAILY 08/23/19 [History] Duloxetine HCl 30 mg [Cymbalta 30 MG Capsule] 30 mg PO DAILY 08/23/19 [History] Levothyroxine Sodium 50 Mcg [Synthroid 50 Mcg] 50 mcg PO DAILY 08/23/19 [History] Saw [place] Fruit/Zinc Picoli [Saw [place] 450 mg Capsule] 450 mg DAILY 08/23/19 [History] Calcium/Magnesium/Vitamin D3 [Bryn-Mag Complex 300-150 mg Tab] 1 each PO DAILY 08/28/19 [History] Sennosides/Docusate Sodium [Dok Plus Tablet] 1 each PO BID 08/28/19 [History] polyethylene glycoL 3350 [Polyethylene Glycol 3350] 119 gm PO DAILY 08/28/19 [History] Hydrochlorothiazide 12.5 mg PO DAILY 10/02/19 [History] Hx Tetanus, Diphtheria Vaccination/Date Given: Yes Hx Influenza Vaccination/Date Given: Yes Hx Pneumococcal Vaccination/Date Given: Yes Immunizations Up to Date: Yes Travel Risk - International Travel Have you traveled outside of the country in past 3 weeks: No - Coronavirus Screening Are you exhibiting any of the following symptoms?: No Close contact with a COVID-19 positive Pt in past 14-21 Days: No - Review of Systems Constitutional: No Symptoms, No Fever, No Chills Eyes: No Symptoms Ears, Nose, & Throat: No Symptoms Respiratory: No Symptoms, No Cough, No Dyspnea Cardiac: No Symptoms, No Chest Pain, No Edema, No Syncope Abdominal/Gastrointestinal: No Symptoms, No Abdominal Pain, No Nausea, No Vomiting, No Diarrhea Genitourinary Symptoms: No Symptoms, No Dysuria Musculoskeletal: No Symptoms, No Back Pain, No Neck Pain Skin: No Symptoms, No Rash Neurological: No Symptoms, No Dizziness, No Focal Weakness, No Sensory Changes Psychological: No Symptoms Endocrine: No Symptoms Hematologic/Lymphatic: No Symptoms Immunological/Allergic: No Symptoms All Other Systems: Reviewed and Negative - Past Medical History Pertinent Past Medical History: Yes Neurological History: No Pertinent History ENT History: Cataracts Cardiac History: High Cholesterol, Hypertension Respiratory History: COPD, Emphysema, Sleep Apnea Endocrine Medical History: No Pertinent History Musculoskeletal History: No Pertinent History GI Medical History: GERD History: No Pertinent History Psycho-Social History: Depression Male Reproductive Disorders: No Pertinent History - Past Surgical History Past Surgical History: Yes Neuro Surgical History: No Pertinent History Cardiac: Cardiac Catheterization Respiratory: No Pertinent History Gastrointestinal: Hernia Repair Genitourinary: Kidney Surgery Musculoskeletal: No Pertinent History Male Surgical History: No Pertinent History Other Surgical History: cyst removed from kidney, IOL right eye Aug 2019 - Social History Smoking Status: Never smoker Exposure to second hand smoke: No Drug Use: none Patient Lives Alone: No - Nursing Vital Signs Nursing Vital Signs: Initial Vital Signs Temperature 98.4 F 11/06/20 14:35 Pulse Rate 73 11/06/20 14:35 Respiratory Rate 22 11/06/20 14:35 Blood Pressure 160/85 11/06/20 14:35 O2 Sat by Pulse Oximetry 93 L 11/06/20 14:35 Pain Scale Pain Intensity 0 - Physical Exam General Appearance: no apparent distress, alert Eye Exam: PERRL/EOMI, eyes nml inspection Ears, Nose, Throat Exam: normal ENT inspection, TMs normal, pharynx normal, moist mucous membranes Neck Exam: normal inspection, non-tender, supple, full range of motion Respiratory Exam: normal breath sounds, lungs clear, No respiratory distress Cardiovascular Exam: regular rate/rhythm, normal heart sounds, normal peripheral pulses Gastrointestinal/Abdomen Exam: soft, normal bowel sounds, No tenderness, No mass Back Exam: normal inspection, normal range of motion, No CVA tenderness, No vertebral tenderness Extremity Exam: normal inspection, normal range of motion, pelvis stable, pedal edema, swelling, other (Left lower extremity pitting edema. Positive Homans' sign.) Neurologic Exam: alert, oriented x 3, cooperative, normal mood/affect, nml cerebellar function, nml station & gait, sensation nml, No motor deficits Skin Exam: normal color, warm, dry, No rash Lymphatic Exam: No adenopathy SpO2 Interpretation: normal SpO2: 93 O2 Delivery: Room Air - Course Nursing assessment & vital signs reviewed: Yes EKG Interpreted by Me: RATE (79), Sinus Rhythm, NORMAL AXIS, NORMAL INTERVALS - Radiology Exams Chest X-ray Interpretation: Teleradiologist Report (Portable chest demonstrates new left midlung infiltrate versus atelectasis. Stable bibasilar ate lectasis/scarring and left hemidiaphragm elevation. Remaining heart and bony thorax unremarkable) - CT Exams Head CT Interpretation: Tele-radiologist Report (Age-appropriate global atrophy and moderate periventricular degenerative microischemia bilaterally. No acute intracranial hemorrhage abnormal extra-axial fluid collection or mass-effect. Fourth ventricle is midline without hydrocephalus. Bony calvarium intact. Visualized paranasal sinuses clear) - Radiology Ultrasound Exam Venous Lower Extremity Ultrasound: discussed w/radiologist (Per professional system administrator left lower extremity negative for DVT) Ordered Tests: Active Orders 24 hr Category Date Time Status Product Marketing Specialist STAT Care 11/06/20 14:40 Active EKG-ER Only STAT Care 11/06/20 14:39 Active IV Insertion STAT Care 11/06/20 14:39 Active Pulse Oximetry (ED) STAT Care 11/06/20 14:39 Active CHEST 1 VIEW (PORTABLE) Stat Exams 11/06/20 14:40 Completed HEAD WITHOUT CONTRAST [CT] Stat Exams 11/06/20 14:41 Completed VENOUS UNILAT/LIMITED EXTREMIT [US] Stat Exams 11/06/20 17:32 Taken CBC W DIFF Stat Lab 11/06/20 14:45 Completed CMP Stat Lab 11/06/20 14:45 Completed MAGNESIUM Stat Lab 11/06/20 14:45 Completed Manual Differential NC Stat Lab 11/06/20 14:45 Completed NT PRO BNP Stat Lab 11/06/20 14:45 Completed POCT GLUCOSE Stat Lab 11/06/20 14:46 Completed TROPONIN Q3H Lab 11/06/20 14:45 Completed TROPONIN Q3H Lab 11/06/20 17:45 Completed TROPONIN Q3H Lab 11/06/20 20:45 Ordered TROPONIN Q3H Lab 11/06/20 23:45 Ordered TROPONIN Q3H Lab 11/07/20 02:45 Ordered UA W/RFX UR CULTURE Stat Lab 11/06/20 19:32 Received Transfer Order Routine Transfer 11/06/20 Ordered Lab/Rad Data: Laboratory Result Diagrams 11/06/20 14:45 11/06/20 14:45 Laboratory Results 11/06/20 11/06/20 11/06/20 Range/Units 19:01 17:45 14:46 WBC (4.0-10.5) K/mm3 RBC (4.1-5.6) M/mm3 Hgb (12.5-18.0) gm/dl Hct (42-50) % MCV (78-100) fl MCH (26-32) pg MCHC (32-36) g/dl RDW (11.5-14.0) % Plt Count (150-450) K/mm3 MPV (7.5-11.0) fl Segmented Neutrophils (36.-66.) % Band Neutrophils (0.0-2.0) % Lymphocytes (Manual) (24-44) % Monocytes (Manual) (0.0-12.0) % Nucleated RBCs % Atypical Lymphocytes % Dohle Bodies Platelet Estimate (NORMAL) RBC Morphology Polychromasia Sodium (137-145) mmol/L Potassium (3.5-5.1) mmol/L Chloride (98-107) mmol/L Carbon Dioxide (22-30) mmol/L Anion Gap (5-15) MEQ/L BUN (9-20) mg/dL Creatinine (0.66-1.25) mg/dL Estimated GFR ML/MIN Glucose (74-106) mg/dL POC Glucometer 96 (74 to 106) mg/dL Calcium (8.4-10.2) mg/dL Magnesium (1.6-2.3) mg/dL Total Bilirubin (0.2-1.3) mg/dL AST (17-59) U/L ALT (0-50) U/L Alkaline Phosphatase (38-126) U/L Troponin I < 0.012 (0.000-0.034) ng/mL NT-Pro-B Natriuret Pep (0-1800) pg/mL Serum Total Protein (6.3-8.2) g/dL Albumin (3.5-5.0) g/dL Influenza Type A Ag NEGATIVE (NEGATIVE) Influenza Type B Ag NEGATIVE (NEGATIVE) RSV (PCR) NEGATIVE (Negative) SARS-CoV-2 (PCR) NEGATIVE (NEGATIVE) 11/06/20 11/06/20 11/06/20 Range/Units 14:45 14:45 14:45 WBC 7.5 (4.0-10.5) K/mm3 RBC 4.33 (4.1-5.6) M/mm3 Hgb 14.6 (12.5-18.0) gm/dl Hct 44.3 (42-50) % MCV 102.3 H (78-100) fl MCH 33.7 H (26-32) pg MCHC 33.0 (32-36) g/dl RDW 15.2 H (11.5-14.0) % Plt Count 152 (150-450) K/mm3 MPV 9.8 (7.5-11.0) fl Segmented Neutrophils 82 H (36.-66.) % Band Neutrophils 4 H (0.0-2.0) % Lymphocytes (Manual) 8 L (24-44) % Monocytes (Manual) 3 (0.0-12.0) % Nucleated RBCs 1 % Atypical Lymphocytes 3 % Dohle Bodies 1+ Platelet Estimate NORMAL (NORMAL) RBC Morphology NORMAL Polychromasia 1+ Sodium 130 L (137-145) mmol/L Potassium 3.8 (3.5-5.1) mmol/L Chloride 92 L (98-107) mmol/L Carbon Dioxide 27 (22-30) mmol/L Anion Gap 14.5 (5-15) MEQ/L BUN 22 H (9-20) mg/dL Creatinine 1.15 (0.66-1.25) mg/dL Estimated GFR > 60.0 ML/MIN Glucose 93 (74-106) mg/dL POC Glucometer (74 to 106) mg/dL Calcium 8.8 (8.4-10.2) mg/dL Magnesium 2.3 (1.6-2.3) mg/dL Total Bilirubin 0.80 (0.2-1.3) mg/dL AST 38 (17-59) U/L ALT 21 (0-50) U/L Alkaline Phosphatase 59 (38-126) U/L Troponin I < 0.012 (0.000-0.034) ng/mL NT-Pro-B Natriuret Pep 253 (0-1800) pg/mL Serum Total Protein 7.5 (6.3-8.2) g/dL Albumin 4.1 (3.5-5.0) g/dL Influenza Type A Ag (NEGATIVE) Influenza Type B Ag (NEGATIVE) RSV (PCR) (Negative) SARS-CoV-2 (PCR) (NEGATIVE) - Progress Progress: improved Progress Note: Patient reassessed. Repeat neuro exam within normal limits. We will admit patient for syncopal work-up. Plan of care discussed with patient. He agrees to admission at [facility] for further evaluation and treatment. Dr. Enrique covering Dr. Dunlap accepts patient to her service. 11/06/20 19:54 Discussed with : Rima Will see patient in: hospital (observation) Counseled pt/family regarding: lab results, diagnosis, rad results - Departure Departure Disposition: Observation Clinical Impression: Syncope and collapse, 2+ pitting edema, Hyponatremia Condition: Stable Critical Care Time: No Referrals: MAURA DUNLAP [Primary Care Provider] - Additional Instructions: Discharge/Care Plan RYANNE GUEVARA was seen on 11/06/20 in the Emergency Room. The patient was counseled regarding Diagnosis,Lab results, Imaging studies, need for follow up and when to return to the Emergency Room. Prescriptions given: Discharge Note I have spoken with the patient and/or caregivers. I have explained the patient's condition, diagnosis and treatment plan based on the information available to me at this time. I have answered the patient's and/or caregiver's questions and addressed any concerns. The patient and/or caregivers have as good understanding of the patient's diagnosis, condition and treatment plan as can be expected at this point. The vital signs have been stable. The patient's condition is stable and appropriate for discharge from the emergency department. The patient will pursue further outpatient evaluation with the primary care physician or other designated or consulting physician as outlined in the discharge instructions. The patient and/or caregivers are agreeable to this plan of care and follow-up instructions have been explained in detail. The patient and/or caregivers have received these instruction. The patient/and or caregivers are aware that any significant change in condition or worsening of symptoms should prompt an immediate return to this or the closest emergency department or call 911.
[2020-11-06 15:10] LABS: Hematocrit 44.3 % (42-50); Hemoglobin 14.6 gm/dl (12.5-18.0); Mean Cell Volume 102.3 fl (78-100); Mean Corpuscular Hemoglobin 33.7 pg (26-32); Mean Platelet Volume 9.8 fl (7.5-11.0); Platelet Count 152 K/mm3 (150-450); Red Blood Count 4.33 M/mm3 (4.1-5.6); Red Cell Distribution Width 15.2 % (11.5-14.0); White Blood Count 7.5 K/mm3 (4.0-10.5)
--- NOTE | 2020-11-06 15:23 | XRAY ---
Indication: Syncope. Comparison: August 14, 2019. Portable chest demonstrates new left midlung infiltrate versus atelectasis. Stable bibasilar atelectasis/scarring and left hemidiaphragm elevation. Remaining heart and bony thorax unremarkable.
[2020-11-06 15:34] LABS: ALBUMIN 4.1 g/dL (3.5-5.0); ALKALINE PHOSPHATASE 59 U/L (38-126); ANION GAP 14.5 MEQ/L (5-15); BLOOD UREA NITROGEN 22 mg/dL (9-20); CHLORIDE 92 mmol/L (98-107); Calcium 8.8 mg/dL (8.4-10.2); Carbon Dioxide 27 mmol/L (22-30); Creatinine 1 1.15 mg/dL (0.66-1.25); EST GLOMERULAR FILTRATION RATE > 60.0 ML/MIN; Glucose 93 mg/dL (74-106); MAGNESIUM 2.3 mg/dL (1.6-2.3); NT PRO BNP 253 pg/mL (0-1800); Potassium 3.8 mmol/L (3.5-5.1); SGOT/AST 38 U/L (17-59); SGPT/ALT 21 U/L (0-50); SODIUM 130 mmol/L (137-145); Total Protein 7.5 g/dL (6.3-8.2)
--- NOTE | 2020-11-06 16:21 | XRAY ---
Indication: Headache and left temporal pain following fall. Multiple contiguous axial images obtained through the head without contrast. Comparison: October 04, 2019. Stable age-appropriate global atrophy and moderate periventricular degenerative micro-ischemia bilaterally. No acute intracranial hemorrhage, abnormal extra-axial fluid collection, or mass effect. Fourth ventricle is midline without hydrocephalus. Bony calvarium intact. Visualized paranasal sinuses and mastoid air cells are clear. Impression: Continued nonacute senile brain.
[2020-11-06 17:48] LABS: ATYPICAL LYMPHS 3 %; BAND 4 % (0.0-2.0); Dohle Bodies 1+; Lymphocytes 8 % (24-44); Monocyte 3 % (0.0-12.0); Neutrophils 82 % (36.-66.); Nucleated Red Blood Cell 1 %; Polychromasia 1+; Total Cells Counted 100
[2020-11-06 17:49] LABS: Platelet Estimate NORMAL (NORMAL)
[2020-11-06 19:44] LABS: INFLUENZA A NEGATIVE (NEGATIVE); INFLUENZA B NEGATIVE (NEGATIVE); RESPIRATORY SYNCTIAL VIRUS NEGATIVE (Negative)
[2020-11-06 19:55] LABS: Appearance SLIGHTLY CLOUDY (CLEAR); Bacteria NONE SEEN /HPF (NEGATIVE); Bilirubin SMALL (NEGATIVE); Blood NEGATIVE Ery/ul (0-5); Glucose NEGATIVE (NEGATIVE); Ketones TRACE (NEGATIVE); Leukocyte Esterase NEGATIVE (NEGATIVE); Mucus SLIGHT /HPF (NEGATIVE); Nitrite NEGATIVE (NEGATIVE); Protein,Urine Dip 100 (Negative); RBC 0-2 /HPF (0-2); Urobilinogen 4 mg/dL (0-1); WBC 0-2 /HPF (0-5)
[2020-11-06] MEDS ORDERED: Zofran 4 MG/2 ML VIAL IV PRN (20:24)
[2020-11-06] MEDS: Sodium Chloride 0.9% 1000 ML 1,000 ML IV SCH (20:33)
[2020-11-06] MEDS ORDERED: PROVENTIL 2.5 MG/3 ML NEB IH PRN (21:18)
[2020-11-06] MEDS: Senokot-S Tablet PO SCH (23:03)
[2020-11-06] MEDS: Coreg 6.25 MG PO SCH (23:03)
[2020-11-06] MEDS: ZOCOR 20MG PO SCH (23:03)
[2020-11-07 04:32] LABS: ALBUMIN 3.2 g/dL (3.5-5.0); ALKALINE PHOSPHATASE 56 U/L (38-126); ANION GAP 10.9 MEQ/L (5-15); BLOOD UREA NITROGEN 20 mg/dL (9-20); CHLORIDE 93 mmol/L (98-107); Calcium 8.1 mg/dL (8.4-10.2); Carbon Dioxide 29 mmol/L (22-30); Creatinine 1 1.12 mg/dL (0.66-1.25); EST GLOMERULAR FILTRATION RATE > 60.0 ML/MIN; Glucose 102 mg/dL (74-106); Potassium 3.6 mmol/L (3.5-5.1); SGOT/AST 26 U/L (17-59); SGPT/ALT 16 U/L (0-50); SODIUM 129 mmol/L (137-145); Total Protein 6.1 g/dL (6.3-8.2)
[2020-11-07 04:34] LABS: Hematocrit 37.4 % (42-50); Hemoglobin 12.7 gm/dl (12.5-18.0); Mean Cell Volume 101.6 fl (78-100); Mean Corpuscular Hemoglobin 34.5 pg (26-32); Mean Platelet Volume 9.5 fl (7.5-11.0); Platelet Count 117 K/mm3 (150-450); Red Blood Count 3.68 M/mm3 (4.1-5.6); Red Cell Distribution Width 15.7 % (11.5-14.0); White Blood Count 6.7 K/mm3 (4.0-10.5)
[2020-11-07] MEDS: Sodium Chloride 0.9% 1000 ML 1,000 ML IV SCH (04:42)
[2020-11-07] MEDS: TYLENOL 325 MG PO PRN (06:23)
[2020-11-07] MEDS ORDERED: Advair Hfa 115/21 Common canister IH SCH (07:00)
[2020-11-07] MEDS ORDERED: PROVENTIL 2.5 MG/3 ML NEB IH SCH (07:00)
[2020-11-07 07:10] LABS: BAND 6 % (0.0-2.0); Lymphocytes 22 % (24-44); Metamyelocyte 1 %; Monocyte 5 % (0.0-12.0); Neutrophils 66 % (36.-66.); Total Cells Counted 100
[2020-11-07 07:12] LABS: Macrocytosis 1+; Platelet Estimate DECREASED (NORMAL)
[2020-11-07] MEDS ORDERED: MEDICATION INTERVENTION MC SCH (07:30)
--- NOTE | 2020-11-07 08:40 | XRAY ---
Indication: Left leg pain and swelling. Two-dimensional sonogram and color Doppler imaging of the major venous vessels of the left leg was performed. Comparison: November 04, 2020. No thrombus seen in the examined deep venous vessels of the left leg including greater saphenous vein. Veins demonstrate normal compressibility. Venous waveforms are normal with and without augmentation. Impression: Left leg continues to be negative for DVT.
[2020-11-07] MEDS: VITAMIN D PO SCH (09:38)
[2020-11-07] MEDS: Senokot-S Tablet PO SCH ×2 (09:38→21:17)
[2020-11-07] MEDS: SYNTHROID 50 MCG PO SCH (09:38)
[2020-11-07] MEDS: ECOTRIN 81 MG PO SCH (09:39)
[2020-11-07] MEDS: Coreg 6.25 MG PO SCH ×2 (09:39→21:13)
[2020-11-07] MEDS: Miralax Powder 17GM PACKET PO SCH (09:39)
[2020-11-07] MEDS: hydroDIURIL 25 MG PO SCH (09:39)
[2020-11-07] MEDS: FOLTX (FOLBIC) PO SCH (09:39)
[2020-11-07] MEDS: Calcium 500MG W/Vit D Tablet PO SCH (09:39)
[2020-11-07] MEDS: Cymbalta 30 MG Capsule PO SCH (09:39)
[2020-11-07] MEDS: Protonix 40MG Tablet PO SCH (09:40)
[2020-11-07] MEDS ORDERED: MAGNESIUM PO SCH (10:00)
[2020-11-07] MEDS ORDERED: CHOLECALCIFEROL PO SCH (10:00)
[2020-11-07] MEDS ORDERED: B6 PO SCH (10:00)
[2020-11-07] MEDS ORDERED: [UNRECOGNIZED DRUG - OTHER] PO SCH (10:00)
[2020-11-07] MEDS ORDERED: B12 PO SCH (10:00)
[2020-11-07] MEDS ORDERED: LEVOMEFOLATE CALCIUM PO SCH (10:00)
[2020-11-07] MEDS ORDERED: CALCIUM PO SCH (10:00)
[2020-11-07] MEDS ORDERED: GAVILAX PO SCH (10:00)
[2020-11-07] MEDS ORDERED: NON-FORMULARY ITEM (Hydrochlorothiazide [Hydrochlorothiazide] 12.5 MG) PO SCH (10:00)
[2020-11-07] MEDS ORDERED: VITAMIN D3 PO SCH (10:00)
[2020-11-07] MEDS ORDERED: NON-FORMULARY ITEM (Umeclidinium Brm/Vilanterol Tr [Anoro Ellipta 62.5-25 Mcg Inh] 1 PUFF) IH SCH (10:00)
[2020-11-07] MEDS ORDERED: ZINC PICOLI PO SCH (10:00)
[2020-11-07] MEDS ORDERED: [UNRECOGNIZED DRUG - OTHER] PO SCH (10:00)
[2020-11-07] MEDS ORDERED: SAW PALMETTO FRUIT PO SCH (10:00)
[2020-11-07] MEDS: DUONEB 0.5-3 MG/3 ml Neb IH SCH ×3 (10:52→19:32)
--- NOTE | 2020-11-07 11:07 | XRAY ---
Indication: Syncope. Two-dimensional sonogram and color Doppler imaging of the carotid arteries of the neck performed. Comparison: April 22, 2020. Examination of the right carotid circulation again demonstrates widely patent common carotid and external carotid arteries. At the level of the bulb, there is now minimal eccentric calcified plaquing extending into the origin/proximal internal carotid artery. PSV of the CCA 63 cm/s. PSV of the ICA is 145 cm/s. ICA/CCA ratio is 2.3. Normal antegrade vertebral artery flow. Examination of the left carotid circulation also demonstrates widely patent common carotid and external carotid arteries. Carotid bulb demonstrates new minimal eccentric calcified plaquing. Mild eccentric soft plaquing in the proximal internal carotid artery, previously poorly visualized. PSV of the CCA is 88 cm/s. PSV of the ICA is 100 cm/s. ICA/CCA ratio is 1.1. Normal antegrade vertebral artery flow. Impression: Minimal/mild arteriosclerotic plaquing bilaterally as detailed. 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 No hemodynamically significant flow-limiting stenosis on the left.
[2020-11-07 14:48] LABS: ANION GAP 12.9 MEQ/L (5-15); BLOOD UREA NITROGEN 18 mg/dL (9-20); CHLORIDE 93 mmol/L (98-107); Calcium 8.4 mg/dL (8.4-10.2); Carbon Dioxide 29 mmol/L (22-30); Creatinine 1 1.14 mg/dL (0.66-1.25); EST GLOMERULAR FILTRATION RATE > 60.0 ML/MIN; Glucose 117 mg/dL (74-106); Potassium 3.8 mmol/L (3.5-5.1); SODIUM 131 mmol/L (137-145)
--- NOTE | 2020-11-07 15:45 | PCM.HP ---
History of Present Illness - Chief Complaint Chief Complaint: syncope Date: 11/07/20 History of Present Illness: is a 85 year old male seen this am following admission from ER for syncopal episode. Patient reports that he has had a syncopal episode last eveni ng. He had not felt well following his testosterone injection that he got this week. He reports really bad headache this time with the injection. He thought the last time he got the testosterone injection his symptoms were related to the covid vaccination that he had received at the same time. Patient reports that he has had multiple falls at home at least one a month. He reports it can happen with changing positions from seated to standing and then attempting to walk. He reports that he does hold on to things to ambulate in the home to steady himself. He does have a walker which he does not use. He has ALMA but is not able to tolerate the mask so does not wear it. He reports some recent chest pain as well following the testosterone injection. He denies SOB. He is not usually on oxygen at home. He lives alone. Medications & Allergies Home Medications: Home Medication List Aspirin [Aspir 81] 81 mg DAILY 08/17/12 [History Confirmed 11/06/20] Omeprazole 40 mg DAILY 08/17/12 [History Confirmed 11/06/20] Pravastatin Sodium [Pravachol] 40 mg HS 08/17/12 [History Confirmed 11/06/20] Umeclidinium Brm/Vilanterol Tr [Anoro Ellipta 62.5-25 Mcg INH] 1 puff IH DAILY 08/14/19 [History Confirmed 11/06/20] Albuterol Sulfate [Albuterol Sulfate Hfa] 8.5 gm IH DAILY 08/23/19 [History Confirmed 11/06/20] B12/Levomefolate Calcium/B-6 [Foltx Tablet] 1 each PO DAILY 08/23/19 [History Confirmed 11/06/20] Carvedilol 6.25 mg [Coreg 6.25 MG] 6.25 mg PO BID 08/23/19 [History Confirmed 11/06/20] Cholecalciferol (Vitamin D3) [D3-2000] 125 mg PO DAILY 08/23/19 [History Confirmed 11/06/20] Duloxetine HCl 30 mg [Cymbalta 30 MG Capsule] 30 mg PO DAILY 08/23/19 [History Confirmed 11/06/20] Levothyroxine Sodium 50 Mcg [Synthroid 50 Mcg] 50 mcg PO DAILY 08/23/19 [History Confirmed 11/06/20] Saw [place]ast[place] Fruit/Zinc Picoli [Saw [place] 450 mg Capsule] 450 mg DAILY 08/23/19 [History Confirmed 11/06/20] Calcium/Magnesium/Vitamin D3 [Bryn-Mag Complex 300-150 mg Tab] 1 each PO DAILY 08/28/19 [History Confirmed 11/06/20] Sennosides/Docusate Sodium [Dok Plus Tablet] 1 each PO BID 08/28/19 [History Confirmed 11/06/20] polyethylene glycoL 3350 [Polyethylene Glycol 3350] 119 gm PO DAILY 08/28/19 [History Confirmed 11/06/20] Hydrochlorothiazide 12.5 mg PO DAILY 10/02/19 [History Confirmed 11/06/20] Allergies/Adverse Reactions: Allergies Allergy/AdvReac Type Severity Reaction Status Date / Time No Known Drug Allergies Allergy Verified 11/06/20 14:41 - Past Medical History Past Medical History: Yes Neurological History: No Pertinent History ENT History: Cataracts Cardiac History: High Cholesterol, Hypertension Respiratory History: COPD, Emphysema, Sleep Apnea Endocrine Medical History: No Pertinent History Musculoskelatal History: No Pertinent History GI Medical History: GERD History: No Pertinent History Pyscho-Social History: Depression Male Reproductive Disorders: No Pertinent History - Past Surgical History Past Surgical History: Yes Neuro Surgical History: No Pertinent History Cardiac History: Cardiac Catheterization Respiratory Surgery: No Pertinent History GI Surgical History: Hernia Repair Genitourinary Surgical Hx: Kidney Surgery Musculskeletal Surgical Hx: No Pertinent History Male Surgical History: No Pertinent History Other Surgical History: cyst removed from kidney, IOL right eye Aug 2019 - Social History Smoking Status: Former smoker Exposure to second hand smoke: No Alcohol: Rarely Drug Use: none - Physical Exam Vital Signs: Vital Signs - 24 hr Temp Pulse Resp BP Pulse Ox 11/07/20 15:06 79 24 90 L 11/07/20 11:50 98.5 F 66 20 104/56 91 L 11/07/20 10:52 80 20 90 L 11/07/20 08:00 20 11/07/20 07:37 98.1 F 74 14 126/60 96 11/07/20 06:34 77 24 95 11/07/20 04:00 99.4 F 79 13 148/67 96 11/07/20 00:00 72 19 96 11/06/20 21:26 75 24 96 11/06/20 20:44 99.3 F 73 20 150/73 93 L 11/06/20 20:24 93 L 11/06/20 20:03 75 126/70 95 11/06/20 19:55 93 L 11/06/20 19:00 74 20 109/71 98 11/06/20 18:18 76 22 165/91 97 11/06/20 16:45 77 22 116/61 94 L Oxygen-Last 24 hours Oxygen Flowrate (L/min)-RT 2 Oxygen Flowrate (L/min)-RT 2 Results - Labs Lab/Micro Results: Lab Results-Last 24 Hours 11/06/20 11/06/20 11/06/20 Range/Units 14:45 14:45 14:45 WBC (4.0-10.5) K/mm3 RBC (4.1-5.6) M/mm3 Hgb (12.5-18.0) gm/dl Hct (42-50) % MCV (78-100) fl MCH (26-32) pg MCHC (32-36) g/dl RDW (11.5-14.0) % Plt Count (150-450) K/mm3 MPV (7.5-11.0) fl Absolute Granulocytes (1.4-6.9) Segmented Neutrophils 82 H (36.-66.) % Band Neutrophils 4 H (0.0-2.0) % Lymphocytes (Manual) 8 L (24-44) % Monocytes (Manual) 3 (0.0-12.0) % Metamyelocytes % Nucleated RBCs 1 % Atypical Lymphocytes 3 % Dohle Bodies 1+ Platelet Estimate NORMAL (NORMAL) RBC Morphology NORMAL Polychromasia 1+ Macrocytosis Sodium 130 L (137-145) mmol/L Potassium 3.8 (3.5-5.1) mmol/L Chloride 92 L (98-107) mmol/L Carbon Dioxide 27 (22-30) mmol/L Anion Gap 14.5 (5-15) MEQ/L BUN 22 H (9-20) mg/dL Creatinine 1.15 (0.66-1.25) mg/dL Estimated GFR > 60.0 ML/MIN Glucose 93 (74-106) mg/dL Calcium 8.8 (8.4-10.2) mg/dL Magnesium 2.3 (1.6-2.3) mg/dL Total Bilirubin 0.80 (0.2-1.3) mg/dL AST 38 (17-59) U/L ALT 21 (0-50) U/L Alkaline Phosphatase 59 (38-126) U/L Troponin I < 0.012 (0.000-0.034) ng/mL NT-Pro-B Natriuret Pep 253 (0-1800) pg/mL Serum Total Protein 7.5 (6.3-8.2) g/dL Albumin 4.1 (3.5-5.0) g/dL Urine Color (YELLOW) Urine Appearance (CLEAR) Urine pH (5-6) Ur Specific Tully (1.005-1.025) Urine Protein (Negative) Urine Ketones (NEGATIVE) Urine Blood (0-5) Rajesh/ul Urine Nitrite (NEGATIVE) Urine Bilirubin (NEGATIVE) Urine Urobilinogen (0-1) mg/dL Ur Leukocyte Esterase (NEGATIVE) Urine WBC (Auto) (0-5) /HPF Urine RBC (Auto) (0-2) /HPF U Hyaline Cast (Auto) (0-2) /LPF U Epithel Cells (Auto) (FEW) /HPF Urine Bacteria (Auto) (NEGATIVE) /HPF Urine Mucus (Auto) (NEGATIVE) /HPF Urine Culture Reflexed (NO) Urine Glucose (NEGATIVE) mg/dL Influenza Type A Ag (NEGATIVE) Influenza Type B Ag (NEGATIVE) RSV (PCR) (Negative) SARS-CoV-2 (PCR) (NEGATIVE) 11/06/20 11/06/20 11/06/20 Range/Units 17:45 19:01 19:32 WBC (4.0-10.5) K/mm3 RBC (4.1-5.6) M/mm3 Hgb (12.5-18.0) gm/dl Hct (42-50) % MCV (78-100) fl MCH (26-32) pg MCHC (32-36) g/dl RDW (11.5-14.0) % Plt Count (150-450) K/mm3 MPV (7.5-11.0) fl Absolute Granulocytes (1.4-6.9) Segmented Neutrophils (36.-66.) % Band Neutrophils (0.0-2.0) % Lymphocytes (Manual) (24-44) % Monocytes (Manual) (0.0-12.0) % Metamyelocytes % Nucleated RBCs % Atypical Lymphocytes % Dohle Bodies Platelet Estimate (NORMAL) RBC Morphology Polychromasia Macrocytosis Sodium (137-145) mmol/L Potassium (3.5-5.1) mmol/L Chloride (98-107) mmol/L Carbon Dioxide (22-30) mmol/L Anion Gap (5-15) MEQ/L BUN (9-20) mg/dL Creatinine (0.66-1.25) mg/dL Estimated GFR ML/MIN Glucose (74-106) mg/dL Calcium (8.4-10.2) mg/dL Magnesium (1.6-2.3) mg/dL Total Bilirubin (0.2-1.3) mg/dL AST (17-59) U/L ALT (0-50) U/L Alkaline Phosphatase (38-126) U/L Troponin I < 0.012 (0.000-0.034) ng/mL NT-Pro-B Natriuret Pep (0-1800) pg/mL Serum Total Protein (6.3-8.2) g/dL Albumin (3.5-5.0) g/dL Urine Color LINDA (YELLOW) Urine Appearance SLIGHTLY CLOUDY (CLEAR) Urine pH 5.0 (5-6) Ur Specific Tully 1.030 (1.005-1.025) Urine Protein 100 (Negative) Urine Ketones TRACE (NEGATIVE) Urine Blood NEGATIVE (0-5) Rajesh/ul Urine Nitrite NEGATIVE (NEGATIVE) Urine Bilirubin SMALL (NEGATIVE) Urine Urobilinogen 4 (0-1) mg/dL Ur Leukocyte Esterase NEGATIVE (NEGATIVE) Urine WBC (Auto) 0-2 (0-5) /HPF Urine RBC (Auto) 0-2 (0-2) /HPF U Hyaline Cast (Auto) 3-5 (0-2) /LPF U Epithel Cells (Auto) NONE (FEW) /HPF Urine Bacteria (Auto) NONE SEEN (NEGATIVE) /HPF Urine Mucus (Auto) SLIGHT (NEGATIVE) /HPF Urine Culture Reflexed NO (NO) Urine Glucose NEGATIVE (NEGATIVE) mg/dL Influenza Type A Ag NEGATIVE (NEGATIVE) Influenza Type B Ag NEGATIVE (NEGATIVE) RSV (PCR) NEGATIVE (Negative) SARS-CoV-2 (PCR) NEGATIVE (NEGATIVE) 11/06/20 11/06/20 11/07/20 Range/Units 20:45 23:55 04:12 WBC (4.0-10.5) K/mm3 RBC (4.1-5.6) M/mm3 Hgb (12.5-18.0) gm/dl Hct (42-50) % MCV (78-100) fl MCH (26-32) pg MCHC (32-36) g/dl RDW (11.5-14.0) % Plt Count (150-450) K/mm3 MPV (7.5-11.0) fl Absolute Granulocytes (1.4-6.9) Segmented Neutrophils (36.-66.) % Band Neutrophils (0.0-2.0) % Lymphocytes (Manual) (24-44) % Monocytes (Manual) (0.0-12.0) % Metamyelocytes % Nucleated RBCs % Atypical Lymphocytes % Dohle Bodies Platelet Estimate (NORMAL) RBC Morphology Polychromasia Macrocytosis Sodium (137-145) mmol/L Potassium (3.5-5.1) mmol/L Chloride (98-107) mmol/L Carbon Dioxide (22-30) mmol/L Anion Gap (5-15) MEQ/L BUN (9-20) mg/dL Creatinine (0.66-1.25) mg/dL Estimated GFR ML/MIN Glucose (74-106) mg/dL Calcium (8.4-10.2) mg/dL Magnesium (1.6-2.3) mg/dL Total Bilirubin (0.2-1.3) mg/dL AST (17-59) U/L ALT (0-50) U/L Alkaline Phosphatase (38-126) U/L Troponin I < 0.012 < 0.012 < 0.012 (0.000-0.034) ng/mL NT-Pro-B Natriuret Pep (0-1800) pg/mL Serum Total Protein (6.3-8.2) g/dL Albumin (3.5-5.0) g/dL Urine Color (YELLOW) Urine Appearance (CLEAR) Urine pH (5-6) Ur Specific Tully (1.005-1.025) Urine Protein (Negative) Urine Ketones (NEGATIVE) Urine Blood (0-5) Rajseh/ul Urine Nitrite (NEGATIVE) Urine Bilirubin (NEGATIVE) Urine Urobilinogen (0-1) mg/dL Ur Leukocyte Esterase (NEGATIVE) Urine WBC (Auto) (0-5) /HPF Urine RBC (Auto) (0-2) /HPF U Hyaline Cast (Auto) (0-2) /LPF U Epithel Cells (Auto) (FEW) /HPF Urine Bacteria (Auto) (NEGATIVE) /HPF Urine Mucus (Auto) (NEGATIVE) /HPF Urine Culture Reflexed (NO) Urine Glucose (NEGATIVE) mg/dL Influenza Type A Ag (NEGATIVE) Influenza Type B Ag (NEGATIVE) RSV (PCR) (Negative) SARS-CoV-2 (PCR) (NEGATIVE) 11/07/20 11/07/20 11/07/20 Range/Units 04:12 04:12 14:37 WBC 6.7 (4.0-10.5) K/mm3 RBC 3.68 L (4.1-5.6) M/mm3 Hgb 12.7 (12.5-18.0) gm/dl Hct 37.4 L (42-50) % MCV 101.6 H (78-100) fl MCH 34.5 H (26-32) pg MCHC 34.0 (32-36) g/dl RDW 15.7 H (11.5-14.0) % Plt Count 117 L (150-450) K/mm3 MPV 9.5 (7.5-11.0) fl Absolute Granulocytes 4.80 (1.4-6.9) Segmented Neutrophils 66 (36.-66.) % Band Neutrophils 6 H (0.0-2.0) % Lymphocytes (Manual) 22 L (24-44) % Monocytes (Manual) 5 (0.0-12.0) % Metamyelocytes 1 % Nucleated RBCs % Atypical Lymphocytes % Dohle Bodies Platelet Estimate DECREASED (NORMAL) RBC Morphology ABNORMAL Polychromasia Macrocytosis 1+ Sodium 129 L 131 L (137-145) mmol/L Potassium 3.6 3.8 (3.5-5.1) mmol/L Chloride 93 L 93 L (98-107) mmol/L Carbon Dioxide 29 29 (22-30) mmol/L Anion Gap 10.9 12.9 (5-15) MEQ/L BUN 20 18 (9-20) mg/dL Creatinine 1.12 1.14 (0.66-1.25) mg/dL Estimated GFR > 60.0 > 60.0 ML/MIN Glucose 102 117 H (74-106) mg/dL Calcium 8.1 L 8.4 (8.4-10.2) mg/dL Magnesium (1.6-2.3) mg/dL Total Bilirubin 0.70 (0.2-1.3) mg/dL AST 26 (17-59) U/L ALT 16 (0-50) U/L Alkaline Phosphatase 56 (38-126) U/L Troponin I (0.000-0.034) ng/mL NT-Pro-B Natriuret Pep (0-1800) pg/mL Serum Total Protein 6.1 L (6.3-8.2) g/dL Albumin 3.2 L (3.5-5.0) g/dL Urine Color (YELLOW) Urine Appearance (CLEAR) Urine pH (5-6) Ur Specific Tully (1.005-1.025) Urine Protein (Negative) Urine Ketones (NEGATIVE) Urine Blood (0-5) Rajesh/ul Urine Nitrite (NEGATIVE) Urine Bilirubin (NEGATIVE) Urine Urobilinogen (0-1) mg/dL Ur Leukocyte Esterase (NEGATIVE) Urine WBC (Auto) (0-5) /HPF Urine RBC (Auto) (0-2) /HPF U Hyaline Cast (Auto) (0-2) /LPF U Epithel Cells (Auto) (FEW) /HPF Urine Bacteria (Auto) (NEGATIVE) /HPF Urine Mucus (Auto) (NEGATIVE) /HPF Urine Culture Reflexed (NO) Urine Glucose (NEGATIVE) mg/dL Influenza Type A Ag (NEGATIVE) Influenza Type B Ag (NEGATIVE) RSV (PCR) (Negative) SARS-CoV-2 (PCR) (NEGATIVE) - Radiology Impressions Radiology Exams & Impressions: Radiology Procedures Category Date Time Status CAROTID BILATERAL [US] Urgent Exams 11/07/20 10:43 Completed CHEST 1 VIEW (PORTABLE) Stat Exams 11/06/20 14:40 Completed ECHO W/2D AND DOPPLER [US] Routine Exams 11/07/20 10:43 Taken HEAD WITHOUT CONTRAST [CT] Stat Exams 11/06/20 14:41 Completed VENOUS UNILAT/LIMITED EXTREMIT [US] Stat Exams 11/06/20 17:32 Completed - Other Procedures and Tests Respiratory Therapy 11/06/20 21:16 Oxygen Nasal Cannula 2 lpm Respiratory Therapy Assessment DAILY Assessment/Plan (1) Syncope and collapse Current Visit: Yes Status: Acute Assessment & Plan: Patient had recent fall but also admitted to having multiple falls at home about once a month. Patient had positive orthostatic VS in er but when repeated on the medical floor they were wnl. Concerns for possible orthostasis. Carotid US was ordered and shows a stenotic lesion Code(s): R55 - SYNCOPE AND COLLAPSE (2) Orthostatic hypotension Current Visit: Yes Status: Acute Code(s): I95.1 - ORTHOSTATIC HYPOTENSION (3) Heart murmur Current Visit: Yes Status: Acute Code(s): R01.1 - CARDIAC MURMUR, UNSPE CIFIED (4) Hyponatremia Current Visit: Yes Status: Acute Code(s): E87.1 - HYPO-OSMOLALITY AND HYPONATREMIA (5) Fall Current Visit: No Status: Acute Code(s): W19.XXXA - UNSPECIFIED FALL, INITIAL ENCOUNTER
[2020-11-07] MEDS: ZOCOR 20MG PO SCH (21:13)
[2020-11-08] MEDS: DUONEB 0.5-3 MG/3 ml Neb IH SCH ×4 (07:14→19:59)
[2020-11-08] MEDS: TYLENOL 325 MG PO PRN (07:42)
[2020-11-08] MEDS: SYNTHROID 50 MCG PO SCH (09:15)
[2020-11-08] MEDS: Calcium 500MG W/Vit D Tablet PO SCH (09:15)
[2020-11-08] MEDS: Cymbalta 30 MG Capsule PO SCH (09:15)
[2020-11-08] MEDS: Miralax Powder 17GM PACKET PO SCH (09:15)
[2020-11-08] MEDS: Senokot-S Tablet PO SCH ×2 (09:15→21:40)
[2020-11-08] MEDS: VITAMIN D PO SCH (09:15)
[2020-11-08] MEDS: hydroDIURIL 25 MG PO SCH (09:16)
[2020-11-08] MEDS: ECOTRIN 81 MG PO SCH (09:16)
[2020-11-08] MEDS: Coreg 6.25 MG PO SCH ×2 (09:16→21:40)
[2020-11-08] MEDS: Protonix 40MG Tablet PO SCH (09:16)
[2020-11-08] MEDS: FOLTX (FOLBIC) PO SCH (09:17)
--- NOTE | 2020-11-08 11:57 | PCM.NOTE ---
Date and Time: 11/08/20 1150 Subjective Assessment: Pt started having some cough today. He c/o early satiety for the past 6 mo. For the past 2-3 d having intermittent lower abd pain. Passing just small stools. - Review of Systems Constitutional: Other (elevated temp) Respiratory: Cough Objective Exam General Appearance: no apparent distress, alert, obese Neurologic Exam: oriented x 3, cooperative Skin Exam: normal color, warm, dry, No rash Eye Exam: eyes nml inspection Ears, Nose, Throat Exam: moist mucous membranes Neck Exam: normal inspection Respiratory Exam: normal breath sounds, lungs clear, No crackles/rales, No rhonchi, No wheezing Cardiovascular Exam: regular rate/rhythm, normal heart sounds, No murmur Gastrointestinal/Abdomen Exam: soft, normal bowel sounds, tenderness (epigastric) Extremity Exam: No pedal edema, No swelling Back Exam: normal inspection, No rash OBJECTIVE DATA Vital Signs: Vital Signs - 24 hr Temp Pulse Resp BP Pulse Ox 11/08/20 11:13 59 L 23 96 11/08/20 08:00 98.7 F 67 20 149/70 95 11/08/20 07:44 14 11/08/20 07:18 68 23 96 11/08/20 04:00 98.8 F 72 20 171/75 96 11/08/20 00:00 98.9 F 70 20 144/67 94 L 11/07/20 20:00 100.1 F 78 17 145/81 94 L 11/07/20 19:32 78 20 94 L 11/07/20 16:00 79 20 147/70 97 11/07/20 15:06 79 24 90 L Oxygen-Last 24 hours Oxygen Flowrate (L/min)-RT 2 Oxygen Flowrate (L/min)-RT 2 Oxygen Flowrate (L/min)-RT 2 Pain Assessment - Last Documented Pain Intensity 1 Pain Scale Used 0-10 Pain Scale Intake and Output: Intake & Output 11/05/20 11/06/20 11/07/20 11/08/20 11:59 11:59 11:59 11:59 Intake Total 1832 1160 Output Total 400 200 Balance 1432 960 Weight 108.862 kg Lab Results: Lab Results-Last 24 Hours 11/07/20 Range/Units 14:37 Sodium 131 L (137-145) mmol/L Potassium 3.8 (3.5-5.1) mmol/L Chloride 93 L (98-107) mmol/L Carbon Dioxide 29 (22-30) mmol/L Anion Gap 12.9 (5-15) MEQ/L BUN 18 (9-20) mg/dL Creatinine 1.14 (0.66-1.25) mg/dL Estimated GFR > 60.0 ML/MIN Glucose 117 H (74-106) mg/dL Calcium 8.4 (8.4-10.2) mg/dL Radiology Exams: Radiology Procedures Category Date Time Status CAROTID BILATERAL [US] Urgent Exams 11/07/20 10:43 Completed CHEST 1 VIEW (PORTABLE) Stat Exams 11/06/20 14:40 Completed ECHO W/2D AND DOPPLER [US] Routine Exams 11/07/20 10:43 Taken HEAD WITHOUT CONTRAST [CT] Stat Exams 11/06/20 14:41 Completed VENOUS UNILAT/LIMITED EXTREMIT [US] Stat Exams 11/06/20 17:32 Completed Multi-Disciplinary Progress Notes: Multi-Disciplinary Progress Notes 11/08/20 10:23 Case Management Note by Rosanna Rg CONTINUES TO PLAN TO RETURN HOME TO PRE EPISODIC LEVEL OF [facility]. [facility] TO FOLLOW ON DISCHARGE FOR [facility] SUPPORT. Initialized on 11/08/20 10:23 - END OF NOTE 11/07/20 15:14 Respiratory Note by Sanaz Cruz Spoke to patient regarding his home cpap. He stated that he doesnt use it because the mask is uncomfortable and hurts his face and that he has woke up pulling it off his face before. I asked him if he would be interested in trying ours tonight and he agreed. Will call his home care company for his settings. Initialized on 11/07/20 15:14 - END OF NOTE 11/07/20 12:32 Case Management Note by Gay Haley CAN NOT TAKE PATIENT. WILL SEND REFERRAL TO [facility] Initialized on 11/07/20 12:32 - END OF NOTE Assessment/Plan (1) Pneumonia Current Visit: Yes Status: Acute Qualifiers: Pneumonia type: due to unspecified organism Laterality: left Lung location: unspecified part of lung Qualified Code(s): J18.9 - Pneumonia, unspecified organism Assessment & Plan: Pt has been on bactrim for cellulitis, but with temp to 100.1 last night will go ahead and start IV antibiotic and treat for pneumonia and cellulitis (rocephin/zithromax). Code(s): J18.9 - PNEUMONIA, UNSPECIFIED ORGANISM (2) Early satiety Current Visit: Yes Status: Acute Assessment & Plan: Will defer to PCP, but pt may need EGD outpatient. Code(s): R68.81 - EARLY SATIETY (3) Hyponatremia Current Visit: Yes Status: Acute Assessment & Plan: improved from 130 to 131. Recheck in a.m. Code(s): E87.1 - HYPO-OSMOLALITY AND HYPONATREMIA (4) Orthostatic hypotension Current Visit: Yes Status: Resolved Code(s): I95.1 - ORTHOSTATIC HYPOTENSION (5) Syncope and collapse Current Visit: Yes Status: Acute Code(s): R55 - SYNCOPE AND COLLAPSE (6) Fall Current Visit: No Status: Acute Qualifiers: Encounter type: initial encounter Qualified Code(s): W19.XXXA - Unspecified fall, initial encounter Code(s): W19.XXXA - UNSPECIFIED FALL, INITIAL ENCOUNTER (7) Constipated Current Visit: Yes Status: Acute Qualifiers: Constipation type: slow transit constipation Qualified Code(s): K59.01 - Slow transit constipation Assessment & Plan: likely. add stool softener. Code(s): K59.00 - CONSTIPATION, UNSPECIFIED
[2020-11-08] MEDS: ROCEPHIN 1 Gm-D5w 50 ml Bag** 1 G/50 ML IVPB IV SCH (12:41)
[2020-11-08] MEDS: Zithromax 500 MG/ 250 ML NaCl Premix 500 MG/250 ML IVPB IV SCH (12:41)
[2020-11-08] MEDS: Colace 100 MG PO SCH ×2 (12:41→21:40)
[2020-11-08] MEDS: ZOCOR 20MG PO SCH (21:40)
[2020-11-09] MEDS: DUONEB 0.5-3 MG/3 ml Neb IH SCH ×4 (07:12→19:36)
[2020-11-09] MEDS ORDERED: Apresoline 25 MG TABLET PO PRN (08:33)
[2020-11-09] MEDS: Cymbalta 30 MG Capsule PO SCH (09:32)
[2020-11-09] MEDS: hydroDIURIL 25 MG PO SCH (09:32)
[2020-11-09] MEDS: SYNTHROID 50 MCG PO SCH (09:33)
[2020-11-09] MEDS: VITAMIN D PO SCH (09:33)
[2020-11-09] MEDS: ECOTRIN 81 MG PO SCH (09:33)
[2020-11-09] MEDS: Calcium 500MG W/Vit D Tablet PO SCH (09:33)
[2020-11-09] MEDS: Protonix 40MG Tablet PO SCH (09:33)
[2020-11-09] MEDS: Miralax Powder 17GM PACKET PO SCH (09:34)
[2020-11-09] MEDS: Colace 100 MG PO SCH ×2 (09:34→21:12)
[2020-11-09] MEDS: Senokot-S Tablet PO SCH ×2 (09:34→21:12)
[2020-11-09] MEDS: FOLTX (FOLBIC) PO SCH (09:34)
[2020-11-09] MEDS: Coreg 6.25 MG PO SCH ×2 (09:36→20:57)
[2020-11-09] MEDS: ROCEPHIN 1 Gm-D5w 50 ml Bag** 1 G/50 ML IVPB IV SCH (09:39)
[2020-11-09] MEDS: Zithromax 500 MG/ 250 ML NaCl Premix 500 MG/250 ML IVPB IV SCH (10:31)
--- NOTE | 2020-11-09 11:38 | PCM.NOTE ---
Date and Time: 11/09/20 1133 Subjective Assessment: Pt does not remember having a cough but is oriented x 3 (month is "the third month.") He is up with assistance but has bed alarm on. Sara po fine. BP this morning was 188/90; repeat on manual cuff was 142/80. Pt's daughter is with him this morning and she notes he chronically has a cough due to COPD. - Review of Systems Respiratory: Cough Abdominal/Gastrointestinal: No Vomiting Objective Exam General Appearance: no apparent distress, alert Neurologic Exam: oriented x 3, cooperative Skin Exam: normal color, warm, dry, No rash Eye Exam: eyes nml inspection Ears, Nose, Throat Exam: moist mucous membranes Respiratory Exam: diminished breath sounds (good air exchange), No crackles/rales, No rhonchi, No wheezing Cardiovascular Exam: regular rate/rhythm, normal heart sounds, No murmur Gastrointestinal/Abdomen Exam: soft, tenderness (epigastrum/LUQ, pt states since surgery years ago) Extremity Exam: swelling (trace pretibial edema) Back Exam: normal inspection, No rash OBJECTIVE DATA Vital Signs: Vital Signs - 24 hr Temp Pulse Resp BP Pulse Ox 11/09/20 11:13 73 24 91 L 11/09/20 08:44 142/80 11/09/20 07:34 97.6 F 69 16 188/90 95 11/09/20 07:16 71 24 90 L 11/09/20 04:00 98.5 F 68 22 159/76 91 L 11/08/20 23:46 97.9 F 72 22 135/67 89 L 11/08/20 19:59 70 22 92 L 11/08/20 19:32 98.6 F 66 23 148/76 93 L 11/08/20 16:00 97.6 F 68 25 H 150/76 93 L 11/08/20 15:00 74 22 93 L 11/08/20 12:00 97.9 F 61 21 103/58 94 L Pain Assessment - Last Documented Pain Intensity 0 Pain Scale Used 0-10 Pain Scale Intake and Output: Intake & Output 11/06/20 11/07/20 11/08/20 11/09/20 11:59 11:59 11:59 11:59 Intake Total 1832 1160 1537 Output Total 400 200 925 Balance 1432 960 612 Weight 108.862 kg Radiology Exams: Radiology Procedures Category Date Time Status CAROTID BILATERAL [US] Urgent Exams 11/07/20 10:43 Completed ECHO W/2D AND DOPPLER [US] Routine Exams 11/07/20 10:43 Taken Assessment/Plan (1) Pneumonia Current Visit: Yes Status: Acute Qualifiers: Pneumonia type: due to unspecified organism Laterality: left Lung location: unspecified part of lung Qualified Code(s): J18.9 - Pneumonia, unspecified organism Assessment & Plan: On IV rocephin and zithromax day #2. Code(s): J18.9 - PNEUMONIA, UNSPECIFIED ORGANISM (2) Early satiety Current Visit: Yes Status: Chronic Assessment & Plan: PCP to address this. Code(s): R68.81 - EARLY SATIETY (3) Hyponatremia Current Visit: Yes Status: Acute Assessment & Plan: WIll recheck. Code(s): E87.1 - HYPO-OSMOLALITY AND HYPONATREMIA (4) Syncope and collapse Current Visit: Yes Status: Acute Code(s): R55 - SYNCOPE AND COLLAPSE (5) Fall Current Visit: No Status: Acute Qualifiers: Encounter type: initial encounter Qualified Code(s): W19.XXXA - Unspecified fall, initial encounter Assessment & Plan: PT tomorrow. Code(s): W19.XXXA - UNSPECIFIED FALL, INITIAL ENCOUNTER (6) Constipated Current Visit: Yes Status: Acute Qualifiers: Constipation type: slow transit constipation Qualified Code(s): K59.01 - Slow transit constipation Assessment & Plan: Did have a large BM Code(s): K59.00 - CONSTIPATION, UNSPECIFIED
[2020-11-09] MEDS: ENOXAPARIN SODIUM SQ SCH (11:51)
[2020-11-09 13:31] LABS: ANION GAP 11.5 MEQ/L (5-15); BLOOD UREA NITROGEN 11 mg/dL (9-20); CHLORIDE 90 mmol/L (98-107); Calcium 8.2 mg/dL (8.4-10.2); Carbon Dioxide 31 mmol/L (22-30); Creatinine 1 0.83 mg/dL (0.66-1.25); EST GLOMERULAR FILTRATION RATE > 60.0 ML/MIN; Glucose 116 mg/dL (74-106); SODIUM 130 mmol/L (137-145)
[2020-11-09 13:47] LABS: Potassium 2.7 mmol/L (3.5-5.1)
[2020-11-09] MEDS ORDERED: K-LYTE 25 MEQ PO ONE (14:30)
[2020-11-09] MEDS: Sodium Chloride 0.9% W/ 20 mEq KCl/LITER 1,000 ML IV SCH (14:35)
[2020-11-09 16:23] LABS: MAGNESIUM 2.1 mg/dL (1.6-2.3)
[2020-11-09 16:27] LABS: Potassium 2.8 mmol/L (3.5-5.1)
[2020-11-09] MEDS: POTASSIUM CHLORIDE 20 mEq IN WATER 100ML 20 MEQ/100 ML BAG IV SCH ×2 (17:02→20:03)
[2020-11-09] MEDS: ZOCOR 20MG PO SCH (20:56)
[2020-11-10 02:02] LABS: C. Difficile Organism NEGATIVE (NEGATIVE); Campylobacter NEGATIVE (NEGATIVE); Plesiomonas shigelloides NEGATIVE (NEGATIVE); Salmonella NEGATIVE (NEGATIVE); Vibrio NEGATIVE (NEGATIVE); Vibrio cholerae NEGATIVE (NEGATIVE); Yersinia enterocolitica NEGATIVE (NEGATIVE)
[2020-11-10 02:03] LABS: Adenovirus F 40/41 NEGATIVE (NEGATIVE); Astrovirus NEGATIVE (NEGATIVE); Cryptosporidium NEGATIVE (NEGATIVE); Cyclospora cayentanensis NEGATIVE (NEGATIVE); Entamoeaba histolytica NEGATIVE (NEGATIVE); Enteroaggregative E.coli POSITIVE (NEGATIVE); Enteropathogenic E.coli NEGATIVE (NEGATIVE); Enterotoxigenic E.coli NEGATIVE (NEGATIVE); Giardia lamblia NEGATIVE (NEGATIVE); Norovirus GI/GII NEGATIVE (NEGATIVE); Rotavirus A NEGATIVE (NEGATIVE); Sapovirus NEGATIVE (NEGATIVE); Shiga-like toxin prod.E.coli NEGATIVE (NEGATIVE)
[2020-11-10] MEDS: DUONEB 0.5-3 MG/3 ml Neb IH SCH ×2 (06:38→11:04)
[2020-11-10] MEDS: Cymbalta 30 MG Capsule PO SCH (09:12)
[2020-11-10] MEDS: Coreg 6.25 MG PO SCH (09:12)
[2020-11-10] MEDS: SYNTHROID 50 MCG PO SCH (09:12)
[2020-11-10] MEDS: Calcium 500MG W/Vit D Tablet PO SCH (09:12)
[2020-11-10] MEDS: VITAMIN D PO SCH (09:12)
[2020-11-10] MEDS: hydroDIURIL 25 MG PO SCH (09:13)
[2020-11-10] MEDS: ECOTRIN 81 MG PO SCH (09:13)
[2020-11-10] MEDS: Protonix 40MG Tablet PO SCH (09:13)
[2020-11-10] MEDS: FOLTX (FOLBIC) PO SCH (09:13)
[2020-11-10] MEDS: ENOXAPARIN SODIUM SQ SCH (09:14)
[2020-11-10] MEDS: Colace 100 MG PO SCH (09:17)
[2020-11-10] MEDS: Miralax Powder 17GM PACKET PO SCH (09:18)
[2020-11-10] MEDS: ROCEPHIN 1 Gm-D5w 50 ml Bag** 1 G/50 ML IVPB IV SCH (09:18)
[2020-11-10] MEDS: Senokot-S Tablet PO SCH (09:18)
[2020-11-10] MEDS: Zithromax 500 MG/ 250 ML NaCl Premix 500 MG/250 ML IVPB IV SCH (10:32)
[2020-11-10 11:10] VITALS: PULSE 72
[2020-11-10 11:25] LABS: Hematocrit 39.4 % (42-50); Hemoglobin 12.9 gm/dl (12.5-18.0); Mean Cell Volume 101.3 fl (78-100); Mean Corpuscular Hemoglobin 33.2 pg (26-32); Mean Corpuscular Hgb Concent. 32.7 g/dl (32-36); Mean Platelet Volume 9.3 fl (7.5-11.0); Platelet Count 166 K/mm3 (150-450); Red Blood Count 3.89 M/mm3 (4.1-5.6); Red Cell Distribution Width 15.1 % (11.5-14.0); White Blood Count 7.8 K/mm3 (4.0-10.5)
[2020-11-10 11:34] VITALS: BP 120/59; O2SAT 96
[2020-11-10 11:52] LABS: ANION GAP 13.5 MEQ/L (5-15); BLOOD UREA NITROGEN 9 mg/dL (9-20); CHLORIDE 92 mmol/L (98-107); Calcium 8.2 mg/dL (8.4-10.2); Carbon Dioxide 29 mmol/L (22-30); Creatinine 1 0.74 mg/dL (0.66-1.25); EST GLOMERULAR FILTRATION RATE > 60.0 ML/MIN; Glucose 165 mg/dL (74-106); Potassium 3.1 mmol/L (3.5-5.1); SODIUM 131 mmol/L (137-145)
[2020-11-10] MEDS: Sodium Chloride 0.9% W/ 20 mEq KCl/LITER 1,000 ML IV SCH (12:54)
--- NOTE | 2020-11-10 13:19 | XRAY ---
Indication: CHF. Comparison: November 06, 2020. Portable apical lordotic chest unchanged again underinflated with bibasilar atelectasis/scarring and left hemidiaphragm elevation. Heart is not enlarged for AP portable technique. No new cardiopulmonary abnormalities.
[2020-11-10 13:37] LABS: Basophil 1 % (0.0-1.0); Eosinophil 2 % (0.00-3.0); Lymphocytes 33 % (24-44); Monocyte 4 % (0.0-12.0); Neutrophils 60 % (36.-66.); Total Cells Counted 100
[2020-11-10 13:38] LABS: ANISOCYTOSIS 1+; Platelet Estimate NORMAL (NORMAL)
== END 2020-11-10 14:25 | disposition home health service (06) | DRG 312 ==
LOC: ED 14:22 → MED SURG 20:15 → OBSVTOIN 11-08 11:50
PROVIDERS: ADMIT Family Medicine; ATTEND Family Medicine
DX: R55 Syncope and collapse (principal); J18.9 Pneumonia, unspecified organism; E87.1 Hypo-osmolality and hyponatremia; R51.9 Headache, unspecified; W07.XXXA Fall from chair, initial encounter; Y92.009 Unspecified place in unspecified non-institutional (private) residence as the place of occurrence of the external cause; Z79.899 Other long term (current) drug therapy; I10 Essential (primary) hypertension; J44.9 Chronic obstructive pulmonary disease, unspecified; E78.00 Pure hypercholesterolemia, unspecified; R01.1 Cardiac murmur, unspecified; R68.81 Early satiety; K59.01 Slow transit constipation; G47.30 Sleep apnea, unspecified
CPT/HCPCS: 0097U; 0241U; 36000; 36415; 70450; 71045; 80048; 80053; 81001; 82947; 83735; 83880; 84132; 84484; 85025; 93005; 93041; 93268; 93306; 93880; 93971; 94640; 94660; 94760; 94762; 97161; 97530; 99285; G0378; J0456; J0696; J1650; J3480; J7609; A9270-GY

== ENCOUNTER 2020-12-22 17:47 | Inpatient (IN) | payer MEDICARE, OTHER ==
[2020-12-22 18:24] LABS: Hemoglobin 15.3 gm/dl (12.5-18.0); Mean Cell Volume 100.2 fl (78-100); Mean Corpuscular Hemoglobin 33.3 pg (26-32); Mean Corpuscular Hgb Concent. 33.3 g/dl (32-36); Mean Platelet Volume 9.7 fl (7.5-11.0); Platelet Count 237 K/mm3 (150-450); Red Blood Count 4.59 M/mm3 (4.1-5.6); Red Cell Distribution Width 14.1 % (11.5-14.0); White Blood Count 15.5 K/mm3 (4.0-10.5)
[2020-12-22 18:43] LABS: ALBUMIN 4.7 g/dL (3.5-5.0); ANION GAP 16.8 MEQ/L (5-15); BILIRUBIN,TOTAL 1.2 mg/dL (0.2-1.3); Calcium 9.6 mg/dL (8.4-10.2); Creatinine 1 2.78 mg/dL (0.66-1.25); EST GLOMERULAR FILTRATION RATE 23.3 ML/MIN; MAGNESIUM 2.4 mg/dL (1.6-2.3); Total Protein 8.3 g/dL (6.3-8.2)
[2020-12-22] MEDS ORDERED: Klor Con 10 MEQ PO ONE ×2 (18:50→18:53)
--- NOTE | 2020-12-22 19:00 | ERPHSYRPT ---
- History of Present Illness Time Seen by Provider: 12/22/20 18:15 Source: patient Exam Limitations: no limitations Patient Subjective Stated Complaint: multiple falls in last few days Triage Nursing Assessment: pt to ED c/o multiple falls over last few days. home health RN called in to ED to advise staff of pts recent hx. she reported that BP has been 90/50 sitting and standing on her assessment today. pt reports feeling intermittently dizzy assocaited with the hypotension. c/o pain 4/10 in L ribs, L elbow, and L hand. abd/chest appears WNL, elbow and hand both appear to have small skin tears. Physician History: Patient is a 85-year-old male presents to our ED with his son for evaluation of weakness and recurrent falls. Patient's home health nurse called our ED and advised us that he would be coming. She stated that patient has been falling frequently. She assesses her blood pressure and it was 90/50. Patient has been complaining of some dizziness. Patient's last fall he injured his left rib. Patient also complains of pain to his left elbow. Patient had some discomfort in his left hand and left knee however patient is ambulatory. Patient does not think he requires an x-ray of his left knee or left hand. Patient denies headache. No loss of consciousness. No chest pain or shortness of breath. Symptoms are mild to moderate in intensity. No specific worsening or improving factors. Patient voices no other complaints or concerns at this time. Timing/Duration: day(s) (Weakness and falling for the past 3 days.) Severity: moderate Modifying Factors: Improves With: nothing Associated Symptoms: No nausea, No vomiting, No shortness of breath, No diaphoresis, No cough, No chest pain, No fever, No headaches, No loss of appetite Allergies/Adverse Reactions: No Known Drug Allergies Allergy (Verified 11/06/20 14:41) Home Medications: Omeprazole 40 mg DAILY 08/17/12 [History] Pravastatin Sodium [Pravachol] 40 mg HS 08/17/12 [History] Carvedilol 6.25 mg [Coreg 6.25 MG] 6.25 mg PO BID 08/23/19 [History] Duloxetine HCl 30 mg [Cymbalta 30 MG Capsule] 60 mg PO DAILY 08/23/19 [History] Hydrochlorothiazide 12.5 mg PO DAILY 10/02/19 [History] Docusate Sodium 100 mg [Colace 100 MG] 100 mg PO BID 12/22/20 [History] Furosemide 40 mg [Lasix 40 MG] 40 mg PO DAILY 12/22/20 [History] Levocetirizine Dihydrochloride [Xyzal] 5 mg PO DAILY 12/22/20 [History] Losartan Potassium [Cozaar] 25 mg PO DAILY 12/22/20 [History] Potassium Chloride [K-Dur] 20 meq PO DAILY 12/22/20 [History] Prednisone 10 mg [Deltasone 10 mg] 10 mg PO DAILY 12/22/20 [History] Tramadol HCl 50 mg [Ultram 50 mg] 50 mg PO TID 12/22/20 [History] Hx Tetanus, Diphtheria Vaccination/Date Given: Yes Hx Influenza Vaccination/Date Given: Yes Hx Pneumococcal Vaccination/Date Given: Yes Immunizations Up to Date: Yes Travel Risk - International Travel Have you traveled outside of the country in past 3 weeks: No (N) If Yes, where;: N - Coronavirus Screening Are you exhibiting any of the following symptoms?: No Close contact with a COVID-19 positive Pt in past 14-21 Days: No - Vaccine Status Have you recieved a Covid-19 vaccination: Yes [employer]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 - Vaccination Dates Date of 2cond Vaccination (if applicable): Sep - Review of Systems Constitutional: No Symptoms, No Fever, No Chills Eyes: No Symptoms Ears, Nose, & Throat: No Symptoms Respiratory: No Symptoms, No Cough, No Dyspnea Cardiac: No Symptoms, No Chest Pain, No Edema, No Syncope Abdominal/Gastrointestinal: No Symptoms, No Abdominal Pain, No Nausea, No Vomiting, No Diarrhea Genitourinary Symptoms: No Symptoms, No Dysuria Musculoskeletal: No Symptoms, No Back Pain, No Neck Pain Skin: No Symptoms, No Rash Neurological: No Symptoms, No Dizziness, No Focal Weakness, No Sensory Changes Psychological: No Symptoms Endocrine: No Symptoms Hematologic/Lymphatic: No Symptoms Immunological/Allergic: No Symptoms All Other Systems: Reviewed and Negative - Past Medical History Pertinent Past Medical History: Yes Neurological History: No Pertinent History ENT History: Cataracts Cardiac History: High Cholesterol, Hypertension Respiratory History: COPD, Emphysema, Sleep Apnea Endocrine Medical History: No Pertinent History Musculoskeletal History: No Pertinent History GI Medical History: GERD History: No Pertinent History Psycho-Social History: Depression Male Reproductive Disorders: No Pertinent History - Past Surgical History Past Surgical History: Yes Neuro Surgical History: No Pertinent History Cardiac: Cardiac Catheterization Respiratory: No Pertinent History Gastrointestinal: Hernia Repair Genitourinary: Kidney Surgery Musculoskeletal: No Pertinent History Male Surgical History: No Pertinent History Other Surgical History: cyst removed from kidney, IOL right eye Aug 2019 - Social History Smoking Status: Former smoker Exposure to second hand smoke: No Drug Use: none Patient Lives Alone: Yes - Nursing Vital Signs Nursing Vital Signs: Initial Vital Signs Temperature 97.7 F 12/22/20 18:04 Pulse Rate 74 12/22/20 18:04 Respiratory Rate 18 12/22/20 18:04 Blood Pressure 139/71 12/22/20 18:04 O2 Sat by Pulse Oximetry 94 L 12/22/20 18:04 Pain Scale Pain Intensity 0 - Physical Exam General Appearance: no apparent distress, alert Eye Exam: PERRL/EOMI, eyes nml inspection Ears, Nose, Throat Exam: normal ENT inspection, TMs normal, pharynx normal, moist mucous membranes Neck Exam: normal inspection, non-tender, supple, full range of motion Respiratory Exam: normal breath sounds, lungs clear, other (Tenderness to palpation left rib #8 and 9 at the lateral aspect.), No respiratory distress Cardiovascular Exam: regular rate/rhythm, normal heart sounds, normal peripheral pulses Gastrointestinal/Abdomen Exam: soft, normal bowel sounds, No tenderness, No mass Back Exam: normal inspection, normal range of motion, No CVA tenderness, No vertebral tenderness Extremity Exam: normal inspection, normal range of motion, pelvis stable Neurologic Exam: alert, oriented x 3, cooperative, normal mood/affect, nml cerebellar function, nml station & gait, sensation nml, other (Patient ambulates with a walker.), No motor deficits Skin Exam: normal color, warm, dry, No rash Lymphatic Exam: No adenopathy SpO2 Interpretation: normal SpO2: 94 O2 Delivery: Room Air - Course Nursing assessment & vital signs reviewed: Yes EKG Interpreted by Me: RATE (76), Sinus Rhythm, NORMAL AXIS, NORMAL INTERVALS - Radiology Exams Elbow X-ray Interpretation: Interpreted by me (No fracture or dislocation. No soft tissue abnormalities observed) Chest X-ray Interpretation: Teleradiologist Report (No new change compared to 11/10/2020 again with bibasilar atelectasis/scarring and left hemidiaphragm e levation. No new acute findings.) Ribs X-ray Interpretation: Teleradiologist Report (No comparisons. Osteopenia and multilevel degenerative spondylosis. Otherwise negative (.) Ordered Tests: Active Orders 24 hr Category Date Time Status Wire Charger STAT Care 12/22/20 17:56 Active EKG-ER Only STAT Care 12/22/20 17:55 Active IV Insertion STAT Care 12/22/20 17:55 Active Pulse Oximetry (ED) STAT Care 12/22/20 17:55 Active CHEST 1 VIEW (PORTABLE) Stat Exams 12/22/20 18:01 Taken ELBOW (MINIMUM 3 VIEWS) Stat Exams 12/22/20 18:00 Taken RIBS UNILATERAL Stat Exams 12/22/20 18:00 Taken CBC W DIFF Stat Lab 12/22/20 18:15 Completed CMP Stat Lab 12/22/20 18:15 Completed MAGNESIUM Stat Lab 12/22/20 18:15 Completed Manual Differential NC Stat Lab 12/22/20 18:15 Completed NT PRO BNP Stat Lab 12/22/20 18:15 Completed TROPONIN Q3H Lab 12/22/20 18:15 Completed TROPONIN Q3H Lab 12/22/20 21:05 Received TROPONIN Q3H Lab 12/23/20 00:00 Ordered TROPONIN Q3H Lab 12/23/20 03:00 Ordered TROPONIN Q3H Lab 12/23/20 06:00 Ordered UA W/RFX UR CULTURE Stat Lab 12/22/20 20:15 Completed Transfer Order Routine Transfer 12/22/20 Ordered Medication Summary Generic Name Dose Route Start Last Admin Trade Name Freq PRN Reason Stop Dose Admin Sodium Chloride 1,000 mls @ 100 mls/hr 12/22/20 19:45 12/22/20 19:46 Sodium Chloride 0.9% 1000 Ml IV 01/21/21 19:44 100 mls/hr .Q10H SHRUTHI Administration Discontinued Medications Generic Name Dose Route Start Last Admin Trade Name Freq PRN Reason Stop Dose Admin Potassium Chloride 40 meq 12/22/20 18:50 12/22/20 18:54 Klor Con 10 Meq PO 12/22/20 18:51 40 meq STAT ONE Administration Potassium Chloride Confirm 12/22/20 18:53 Klor Con 10 Meq Administered 12/22/20 18:54 Dose 40 meq PO .STK-MED ONE Lab/Rad Data: Laboratory Result Diagrams 12/22/20 18:15 12/22/20 18:15 Laboratory Results 12/22/20 12/22/20 12/22/20 Range/Units 20:15 20:15 18:15 WBC (4.0-10.5) K/mm3 RBC (4.1-5.6) M/mm3 Hgb (12.5-18.0) gm/dl Hct (42-50) % MCV (78-100) fl MCH (26-32) pg MCHC (32-36) g/dl RDW (11.5-14.0) % Plt Count (150-450) K/mm3 MPV (7.5-11.0) fl Segmented Neutrophils (36.-66.) % Lymphocytes (Manual) (24-44) % Monocytes (Manual) (0.0-12.0) % Platelet Estimate (NORMAL) RBC Morphology Anisocytosis Sodium (137-145) mmol/L Potassium (3.5-5.1) mmol/L Chloride (98-107) mmol/L Carbon Dioxide (22-30) mmol/L Anion Gap (5-15) MEQ/L BUN (9-20) mg/dL Creatinine (0.66-1.25) mg/dL Estimated GFR ML/MIN Glucose (74-106) mg/dL Calcium (8.4-10.2) mg/dL Magnesium (1.6-2.3) mg/dL Total Bilirubin (0.2-1.3) mg/dL AST (17-59) U/L ALT (0-50) U/L Alkaline Phosphatase (38-126) U/L Troponin I < 0.012 (0.000-0.034) ng/mL NT-Pro-B Natriuret Pep (0-1800) pg/mL Serum Total Protein (6.3-8.2) g/dL Albumin (3.5-5.0) g/dL Urine Color YELLOW (YELLOW) Urine Appearance SLIGHTLY CLOUDY (CLEAR) Urine pH 5.0 (5-6) Ur Specific Neola 1.014 (1.005-1.025) Urine Protein NEGATIVE (Negative) Urine Ketones NEGATIVE (NEGATIVE) Urine Blood NEGATIVE (0-5) Rajesh/ul Urine Nitrite NEGATIVE (NEGATIVE) Urine Bilirubin NEGATIVE (NEGATIVE) Urine Urobilinogen 2 (0-1) mg/dL Ur Leukocyte Esterase NEGATIVE (NEGATIVE) Urine WBC (Auto) NONE (0-5) /HPF Urine RBC (Auto) NONE (0-2) /HPF U Hyaline Cast (Auto) >50 (0-2) /LPF U Epithel Cells (Auto) NONE (FEW) /HPF Urine Bacteria (Auto) NONE (NEGATIVE) /HPF Urine Mucus (Auto) SLIGHT (NEGATIVE) /HPF Urine Culture Reflexed NO (NO) Urine Glucose NEGATIVE (NEGATIVE) mg/dL Influenza Type A Ag NEGATIVE (NEGATIVE) Influenza Type B Ag NEGATIVE (NEGATIVE) RSV (PCR) NEGATIVE (Negative) SARS-CoV-2 (PCR) NEGATIVE (NEGATIVE) 12/22/20 12/22/20 Range/Units 18:15 18:15 WBC 15.5 H (4.0-10.5) K/mm3 RBC 4.59 (4.1-5.6) M/mm3 Hgb 15.3 (12.5-18.0) gm/dl Hct 46.0 (42-50) % MCV 100.2 H (78-100) fl MCH 33.3 H (26-32) pg MCHC 33.3 (32-36) g/dl RDW 14.1 H (11.5-14.0) % Plt Count 237 (150-450) K/mm3 MPV 9.7 (7.5-11.0) fl Segmented Neutrophils 75 H (36.-66.) % Lymphocytes (Manual) 18 L (24-44) % Monocytes (Manual) 7 (0.0-12.0) % Platelet Estimate NORMAL (NORMAL) RBC Morphology ABNORMAL Anisocytosis 1+ Sodium 129 L (137-145) mmol/L Potassium 3.0 L* (3.5-5.1) mmol/L Chloride 78 L (98-107) mmol/L Carbon Dioxide 37 H (22-30) mmol/L Anion Gap 16.8 H (5-15) MEQ/L BUN 48 H (9-20) mg/dL Creatinine 2.78 H (0.66-1.25) mg/dL Estimated GFR 23.3 ML/MIN Glucose 147 H (74-106) mg/dL Calcium 9.6 (8.4-10.2) mg/dL Magnesium 2.4 H (1.6-2.3) mg/dL Total Bilirubin 1.20 (0.2-1.3) mg/dL AST 29 (17-59) U/L ALT 22 (0-50) U/L Alkaline Phosphatase 80 (38-126) U/L Troponin I (0.000-0.034) ng/mL NT-Pro-B Natriuret Pep 189 (0-1800) pg/mL Serum Total Protein 8.3 H (6.3-8.2) g/dL Albumin 4.7 (3.5-5.0) g/dL Urine Color (YELLOW) Urine Appearance (CLEAR) Urine pH (5-6) Ur Specific Neola (1.005-1.025) Urine Protein (Negative) Urine Ketones (NEGATIVE) Urine Blood (0-5) Rajesh/ul Urine Nitrite (NEGATIVE) Urine Bilirubin (NEGATIVE) Urine Urobilinogen (0-1) mg/dL Ur Leukocyte Esterase (NEGATIVE) Urine WBC (Auto) (0-5) /HPF Urine RBC (Auto) (0-2) /HPF U Hyaline Cast (Auto) (0-2) /LPF U Epithel Cells (Auto) (FEW) /HPF Urine Bacteria (Auto) (NEGATIVE) /HPF Urine Mucus (Auto) (NEGATIVE) /HPF Urine Culture Reflexed (NO) Urine Glucose (NEGATIVE) mg/dL Influenza Type A Ag (NEGATIVE) Influenza Type B Ag (NEGATIVE) RSV (PCR) (Negative) SARS-CoV-2 (PCR) (NEGATIVE) - Progress Progress: improved Progress Note: Patient reassessed. He feels better. IV fluids infused. Potassium administered. X-ray is negative for acute pathology. Case discussed with Dr. Minor covering Dr. Dunlap. Dr. Minor accepts admission to observation. Plan of care discussed with patient. He agrees to admission at [facility] for further evaluation and treatment. Son at bedside. They voiced no other complaints or concerns at this time. 12/22/20 21:56 Discussed with : Gt Will see patient in: hospital (observation) Counseled pt/family regarding: lab results, diagnosis, rad results - Departure Departure Disposition: Observation Clinical Impression: Generalized weakness, Falls, Hypokalemia, Acute renal injury, Leukocytosis, Hyponatremia, Osteopenia Condition: Stable Critical Care Time: No Referrals: MAURA DUNLAP [Primary Care Provider] -
[2020-12-22] MEDS ORDERED: Sodium Chloride 0.9% 1000 ML 1,000 ML ONE (19:44)
[2020-12-22] MEDS ORDERED: Sodium Chloride 0.9% 1000 ML 1,000 ML IV SCH (19:45)
[2020-12-22 20:26] LABS: Appearance SLIGHTLY CLOUDY (CLEAR); Bilirubin NEGATIVE (NEGATIVE); Blood NEGATIVE Ery/ul (0-5); Glucose NEGATIVE (NEGATIVE); Hyaline Casts >50 /LPF (0-2); Ketones NEGATIVE (NEGATIVE); Leukocyte Esterase NEGATIVE (NEGATIVE); Mucus SLIGHT /HPF (NEGATIVE); Nitrite NEGATIVE (NEGATIVE); Protein,Urine Dip NEGATIVE (Negative); Specific Gravity 1.014 (1.005-1.025); Urobilinogen 2 mg/dL (0-1)
[2020-12-22 20:57] LABS: ANISOCYTOSIS 1+; Lymphocytes 18 % (24-44); Monocyte 7 % (0.0-12.0); Neutrophils 75 % (36.-66.); Platelet Estimate NORMAL (NORMAL); Total Cells Counted 100
[2020-12-22 21:12] LABS: INFLUENZA A NEGATIVE (NEGATIVE); INFLUENZA B NEGATIVE (NEGATIVE); RESPIRATORY SYNCTIAL VIRUS NEGATIVE (Negative)
[2020-12-23 03:42] LABS: ALBUMIN 3.7 g/dL (3.5-5.0); ANION GAP 10.5 MEQ/L (5-15); BILIRUBIN,TOTAL 0.9 mg/dL (0.2-1.3); Calcium 8.7 mg/dL (8.4-10.2); Creatinine 1 2.18 mg/dL (0.66-1.25); EST GLOMERULAR FILTRATION RATE 30.9 ML/MIN; Total Protein 6.7 g/dL (6.3-8.2)
[2020-12-23 04:03] LABS: Hemoglobin 13.7 gm/dl (12.5-18.0); Mean Corpuscular Hemoglobin 33.7 pg (26-32); Mean Corpuscular Hgb Concent. 33.4 g/dl (32-36); Mean Platelet Volume 9.8 fl (7.5-11.0); Platelet Count 188 K/mm3 (150-450); Red Blood Count 4.06 M/mm3 (4.1-5.6); Red Cell Distribution Width 14.2 % (11.5-14.0); White Blood Count 11.9 K/mm3 (4.0-10.5)
[2020-12-23] MEDS: POTASSIUM CHLORIDE 20 mEq IN WATER 100ML 20 MEQ/100 ML BAG IV SCH ×2 (04:07→06:11)
[2020-12-23 06:04] LABS: Basophil 1 % (0.0-1.0); Lymphocytes 16 % (24-44); Monocyte 6 % (0.0-12.0); Neutrophils 77 % (36.-66.); Platelet Estimate NORMAL (NORMAL); Total Cells Counted 100
[2020-12-23] MEDS: Sodium Chloride 0.9% 1000 ML 1,000 ML IV SCH ×2 (06:11→18:58)
[2020-12-23] MEDS ORDERED: Advair Hfa 115/21 Common canister IH SCH (07:00)
[2020-12-23] MEDS: PROVENTIL 2.5 MG/3 ML NEB IH SCH ×4 (07:30→18:44)
[2020-12-23] MEDS: TYLENOL 325 MG PO PRN ×2 (08:29→17:50)
--- NOTE | 2020-12-23 08:39 | XRAY ---
Indication: Pain following fall. Comparison: None 2 view left ribs demonstrates osteopenia and mild/moderate multilevel degenerative spondylosis. No other bony, articular, or soft tissue abnormalities. Chest reported separately.
--- NOTE | 2020-12-23 08:41 | XRAY ---
Indication: Left-sided pain following fall. Comparison: November 10, 2020. Portable chest unchanged again underinflated with bibasilar subsegmental atelectasis/scarring and left hemidiaphragm elevation. Heart not enlarged again with right hilar calcified nodes. Bony thorax intact again with osteopenia and degenerative changes. No new/acute findings.
--- NOTE | 2020-12-23 08:41 | XRAY ---
Indication: Pain following fall. Comparison: None 3 view left elbow demonstrates osteopenia and posterior laceration with overlying bandage material. No other bony, articular, or soft tissue abnormalities.
[2020-12-23] MEDS ORDERED: ULTRAM 50 MG PO PRN (10:24)
[2020-12-23] MEDS ORDERED: Sodium Chloride 0.9% 500 ML 500 ML IV SCH (10:30)
[2020-12-23] MEDS ORDERED: Dulcolax 10 MG SUPP PR SCH (10:30)
[2020-12-23] MEDS: Glucophage 500 MG PO SCH (11:07)
[2020-12-23] MEDS: Cozaar 50 MG PO SCH (11:07)
[2020-12-23] MEDS: Colace 100 MG PO SCH ×2 (11:07→21:29)
[2020-12-23] MEDS: Protonix 40MG Tablet PO SCH (11:07)
[2020-12-23] MEDS: hydroDIURIL 25 MG PO SCH (11:08)
[2020-12-23] MEDS: Coreg 6.25 MG PO SCH ×2 (11:10→21:30)
[2020-12-23] MEDS: Cymbalta 30 MG Capsule PO SCH (11:10)
[2020-12-23] MEDS: Klor Con 10 MEQ PO SCH (11:10)
[2020-12-23] MEDS: LASIX 20 MG PO SCH (11:11)
[2020-12-23] MEDS: Miralax Powder 17GM PACKET PO SCH (11:11)
--- NOTE | 2020-12-23 13:18 | XRAY ---
Indication: Multiple falls, irregular blood pressure, weakness, and hypokalemia. Sagittal, coronal, and axial MRI brain performed without contrast using T1, T2, FLAIR, diffusion, and ADC sequences. Comparison: April 22, 2020. There remains age-appropriate global atrophy and moderate/advanced periventricular degenerative micro-ischemia signal bilaterally. No acute intracranial hemorrhage, abnormal extra-axial fluid collection, or mass effect. Diffusion images remain negative for restricted signal. Fourth ventricle is midline without hydrocephalus. 7/8 cranial nerve complex bilaterally symmetric. Normal flow void signal within the major intracerebral circulation. Normal appearing craniocervical junction and sella turcica. Paranasal sinuses are clear. Impression: Continued normal aging brain for patient's age including atrophy and degenerative micro-ischemia. No new/acute intracranial abnormalities.
[2020-12-23] MEDS: ZOCOR 20MG PO SCH (21:29)
[2020-12-24] MEDS: TYLENOL 325 MG PO PRN ×3 (01:10→11:51)
[2020-12-24] MEDS: Sodium Chloride 0.9% 1000 ML 1,000 ML IV SCH ×3 (05:03→14:43)
[2020-12-24 05:27] LABS: Hematocrit 35.1 % (42-50); Hemoglobin 11.5 gm/dl (12.5-18.0); Mean Cell Volume 100.9 fl (78-100); Mean Corpuscular Hgb Concent. 32.8 g/dl (32-36); Mean Platelet Volume 9.9 fl (7.5-11.0); Platelet Count 155 K/mm3 (150-450); Red Blood Count 3.48 M/mm3 (4.1-5.6); Red Cell Distribution Width 14.1 % (11.5-14.0); White Blood Count 10.3 K/mm3 (4.0-10.5)
[2020-12-24 06:04] LABS: ANION GAP 5.7 MEQ/L (5-15); Calcium 8.1 mg/dL (8.4-10.2); Creatinine 1 1.28 mg/dL (0.66-1.25)
[2020-12-24 06:09] LABS: Potassium 2.8 mmol/L (3.5-5.1)
[2020-12-24] MEDS ORDERED: Klor Con 10 MEQ PO ONE (06:19)
[2020-12-24] MEDS ORDERED: POTASSIUM CHLORIDE 20 mEq IN WATER 100ML 20 MEQ/100 ML BAG IV ONE (06:20)
[2020-12-24] MEDS: PROVENTIL 2.5 MG/3 ML NEB IH SCH ×4 (06:52→18:46)
[2020-12-24] MEDS: PATIENT OWN MEDICATION IH SCH (06:55)
[2020-12-24] MEDS: Triple Antibiotic Ointment TP SCH ×2 (09:39→22:25)
[2020-12-24] MEDS: Colace 100 MG PO SCH ×2 (09:40→22:54)
[2020-12-24] MEDS: Glucophage 500 MG PO SCH (09:40)
[2020-12-24] MEDS: Miralax Powder 17GM PACKET PO SCH (09:40)
[2020-12-24] MEDS: hydroDIURIL 25 MG PO SCH (09:40)
[2020-12-24] MEDS: Protonix 40MG Tablet PO SCH (09:42)
[2020-12-24] MEDS: Coreg 6.25 MG PO SCH ×2 (09:42→22:25)
[2020-12-24] MEDS: LASIX 20 MG PO SCH (09:42)
[2020-12-24] MEDS: Cymbalta 30 MG Capsule PO SCH (09:42)
[2020-12-24] MEDS: Cozaar 50 MG PO SCH (09:42)
[2020-12-24] MEDS ORDERED: NON-FORMULARY ITEM (Losartan Potassium [Cozaar] 25 MG) PO SCH (10:00)
[2020-12-24] MEDS ORDERED: NON-FORMULARY ITEM (Potassium Chloride [K-Dur] 20 MEQ) PO SCH (10:00)
[2020-12-24] MEDS ORDERED: NON-FORMULARY ITEM (Hydrochlorothiazide [Hydrochlorothiazide] 12.5 MG) PO SCH (10:00)
[2020-12-24] MEDS ORDERED: NON-FORMULARY ITEM (Fluticasone/Umeclidin/Vilanter [Trelegy Ellipta 100-62.5-25] 1 EACH) IH SCH (10:00)
[2020-12-24] MEDS: Klor Con 10 MEQ PO SCH ×2 (10:36→14:44)
[2020-12-24] MEDS: ZOCOR 20MG PO SCH (22:26)
[2020-12-25] MEDS: Sodium Chloride 0.9% 1000 ML 1,000 ML IV SCH (00:40)
[2020-12-25] MEDS: TYLENOL 325 MG PO PRN ×2 (00:48→10:37)
[2020-12-25 05:28] LABS: Hematocrit 36.9 % (42-50); Hemoglobin 12.1 gm/dl (12.5-18.0); Mean Cell Volume 102.8 fl (78-100); Mean Corpuscular Hemoglobin 33.7 pg (26-32); Mean Corpuscular Hgb Concent. 32.8 g/dl (32-36); Mean Platelet Volume 10.1 fl (7.5-11.0); Platelet Count 160 K/mm3 (150-450); Red Blood Count 3.59 M/mm3 (4.1-5.6); Red Cell Distribution Width 13.8 % (11.5-14.0); White Blood Count 8.1 K/mm3 (4.0-10.5)
[2020-12-25 06:03] LABS: ANION GAP 7.8 MEQ/L (5-15); BLOOD UREA NITROGEN 22 mg/dL (9-20); CHLORIDE 98 mmol/L (98-107); Calcium 8.4 mg/dL (8.4-10.2); Carbon Dioxide 31 mmol/L (22-30); EST GLOMERULAR FILTRATION RATE > 60.0 ML/MIN; Glucose 121 mg/dL (74-106); Potassium 3.5 mmol/L (3.5-5.1); SODIUM 133 mmol/L (137-145)
[2020-12-25] MEDS: PROVENTIL 2.5 MG/3 ML NEB IH SCH ×2 (06:49→11:21)
[2020-12-25] MEDS: PATIENT OWN MEDICATION IH SCH (06:56)
[2020-12-25] MEDS: Colace 100 MG PO SCH ×2 (09:25→12:07)
[2020-12-25] MEDS: Miralax Powder 17GM PACKET PO SCH (09:25)
[2020-12-25] MEDS: Coreg 6.25 MG PO SCH (10:37)
[2020-12-25] MEDS: Klor Con 10 MEQ PO SCH (10:37)
[2020-12-25] MEDS: Glucophage 500 MG PO SCH (10:37)
[2020-12-25] MEDS: Protonix 40MG Tablet PO SCH (10:37)
[2020-12-25] MEDS: Cymbalta 30 MG Capsule PO SCH (10:37)
[2020-12-25] MEDS: LASIX 20 MG PO SCH (10:37)
[2020-12-25 11:47] VITALS: BP 157/74; PULSE 61; O2SAT 98
[2020-12-25] MEDS: Cozaar 50 MG PO SCH (12:08)
[2020-12-25] MEDS: hydroDIURIL 25 MG PO SCH (12:08)
--- NOTE | 2021-01-04 22:21 | PCM.SSS ---
History of Present Illness - Chief Complaint Chief Complaint: HYPONATREMIA, HYPOKALEMIA, ACUTE RENAL INJURY, DEHYDRATION Date: 12/23/20 History of Present Illness: is a 85 year old male. Presented to ER after falling the past few day, in the er was found to be hypokalemic, dehydrated with acute kidney failure, related to recent adjustments made in his diuretic dose for persistent le edema - Review of Systems Constitutional: Weakness, No Fever, No Chills Eyes: No Symptoms Ears, Nose, & Throat: No Symptoms Respiratory: No Cough, No Short Of Breath Cardiac: No Chest Pain, No Edema, No Syncope Abdominal/Gastrointestinal: No Abdominal Pain, No Nausea, No Vomiting, No Diarrhea Genitourinary Symptoms: No Dysuria Musculoskeletal: No Back Pain, No Neck Pain Skin: No Rash Neurological: No Dizziness, No Focal Weakness, No Sensory Changes Psychological: No Symptoms Endocrine: No Symptoms Hematologic/Lymphatic: No Symptoms Immunological/Allergic: No Symptoms Medications & Allergies Home Medications: Home Medication List Omeprazole 40 mg PO DAILY 08/17/12 [History Confirmed 12/22/20] Pravastatin Sodium [Pravachol] 40 mg PO HS 08/17/12 [History Confirmed 12/22/20] Carvedilol 6.25 mg [Coreg 6.25 MG] 6.25 mg PO BID 08/23/19 [History Confirmed 12/22/20] Duloxetine HCl 30 mg [Cymbalta 30 MG Capsule] 60 mg PO DAILY 08/23/19 [History Confirmed 12/22/20] Hydrochlorothiazide 12.5 mg PO DAILY 10/02/19 [History Confirmed 12/22/20] Docusate Sodium 100 mg [Colace 100 MG] 100 mg PO BID 12/22/20 [History Confirmed 12/22/20] Fluticasone/Umeclidin/Vilanter [Trelegy Ellipta 100-62.5-25] 1 each IH DAILY 12/22/20 [History Confirmed 12/22/20] Furosemide 40 mg [Lasix 40 MG] 40 mg PO DAILY 12/22/20 [History Confirmed 12/22/20] Losartan Potassium [Cozaar] 25 mg PO DAILY 12/22/20 [History Confirmed 12/22/20] Metformin HCl 500 mg [Glucophage 500 MG] 500 mg PO DAILY 12/22/20 [History Confirmed 12/22/20] Potassium Chloride [K-Dur] 20 meq PO DAILY 12/22/20 [History Confirmed 12/22/20] Tramadol HCl 50 mg [Ultram 50 mg] 50 mg PO TIDPRN PRN 12/22/20 [History Confirmed 12/22/20] Allergies/Adverse Reactions: Allergies Allergy/AdvReac Type Severity Reaction Status Date / Time No Known Drug Allergies Allergy Verified 12/22/20 22:18 - Past Medical History Past Medical History: Yes Neurological History: No Pertinent History ENT History: Cataracts Cardiac History: High Cholesterol, Hypertension Respiratory History: CHF, COPD, Emphysema, Pneumonia, Sleep Apnea Endocrine Medical History: Hypothyroidism Musculoskelatal History: Arthritis, Degenerative Disk Disease GI Medical History: GERD History: Renal Disease Pyscho-Social History: Depression Male Reproductive Disorders: No Pertinent History - Past Surgical History Past Surgical History: Yes Neuro Surgical History: No Pertinent History Cardiac History: Cardiac Catheterization Respiratory Surgery: No Pertinent History GI Surgical History: Hernia Repair Genitourinary Surgical Hx: Kidney Surgery Musculskeletal Surgical Hx: No Pertinent History Male Surgical History: No Pertinent History Other Surgical History: cyst removed from kidney 2006, bilatareral cataract surgery 2019 - Social History Smoking Status: Never smoker Exposure to second hand smoke: No Alcohol: Rarely Drug Use: none - Physical Exam General Appearance: no apparent distress, alert Neurologic Exam: alert, oriented x 3, cooperative, normal mood/affect, nml cerebellar function, nml station & gait, sensation nml, No motor deficits Eye Exam: PERRL/EOMI, eyes nml inspection Ears, Nose, Throat Exam: normal ENT inspection, TMs normal, pharynx normal, moist mucous membranes Neck Exam: normal inspection, non-tender, supple, full range of motion Respiratory Exam: normal breath sounds, lungs clear, No respiratory distress Cardiovascular Exam: regular rate/rhythm, normal heart sounds, normal peripheral pulses Gastrointestinal/Abdomen Exam: soft, normal bowel sounds, No tenderness, No mass Back Exam: normal inspection, normal range of motion, No CVA tenderness, No vertebral tenderness Extremity Exam: normal inspection, normal range of motion, pelvis stable, pedal edema Skin Exam: normal color, warm, dry, No rash Wound Assessment: Skin/Wound Assessment Wound/Incision Assessment Start: 12/24/20 09:53 Text: Status: Active Freq: Q6H Protocol: Document 12/25/20 08:00 [id number] (Rec: 12/25/20 08:41 Jil [id number]) Wound/Incision Assessment Left Elbow Wound Assessment Shift Assessment Wound Type Skin Tear Wound Stage Non Pressure Wound Dressing Status Dry & Intact Surrounding Tissue Dark Red,Purple Topical Solution/Irrigant Medicated Ointment Primary Dressing Non-Adherent Gauze Pads Secondary Dressing Gauze Roll/Wrap Comment Dressing cdi Wound Photo Photo Taken No Lymphatic Exam: No adenopathy Assessment/Plan (1) Acute renal injury Status: Acute Code(s): N17.9 - ACUTE KIDNEY FAILURE, UNSPECIFIED (2) Generalized weakness Status: Acute Code(s): R53.1 - WEAKNESS (3) Hypokalemia Status: Acute Code(s): E87.6 - HYPOKALEMIA Hospital Summary - Hospital Course Hospital Course: pt was admitted to ER, with hypokalemia, dehydration and acute kidney injury, pt. had medications adjusted and gentle iv hydration and was felt to be stable to d/c to rehab on the . - Vitals & Intake/Output Vital Signs: Vital Signs Temperature 98 F 12/25/20 11:46 Pulse Rate 61 12/25/20 11:46 Respiratory Rate 23 12/25/20 11:46 Blood Pressure 157/74 12/25/20 11:46 O2 Sat by Pulse Oximetry 98 12/25/20 11:46 - Lab Result Diagrams: 12/25/20 04:42 12/25/20 04:00 - Procedures and Test Procedures and Tests throughout Hospitalization: Therapy Orders & Screens 12/22/20 22:56 RT Screen per Nursing Assess ONCE Comment: Protocol Order Physician Instructions: Greater than 3 points order RT Admission Screen Reason For Exam: Triggered on Admission Diagnosis: ELECTROLYTE ABNORMALITY, ACUTE RENAL INJURY, DEHYDRATION, GENERLIZED WEAKNE Diagnosis: ELECTROLYTE ABNORMALITY, ACUTE RENAL INJURY, DEHYDRATION, GENERLIZED WEAKNE Pneumonia: No Home O2: No Asthma: No CHF: No Home CPAP/BIPAP: Yes Home Nebs/MDI: Yes Total Points: 10 12/23/20 00:48 Oxygen NASAL CANNULA 2 lpm Comment: Diagnosis: ELECTROLYTE ABNORMALITY, ACUTE RENAL INJURY, DEHYDRATION, GENERLIZED WEAKNE Respiratory Therapy Assessment DAILY Comment: Diagnosis: ELECTROLYTE ABNORMALITY, ACUTE RENAL INJURY, DEHYDRATION, GENERLIZED WEAKNE 12/23/20 00:49 BiPap/CPAP ROUTINE Comment: CPAP 6 AT NIGHT PER PT'S HOME USE Diagnosis: ELECTROLYTE ABNORMALITY, ACUTE RENAL INJURY, DEHYDRATION, GENERLIZED WEAKNE 12/23/20 07:00 Respiratory MDI BID Comment: ADVAIR 115 2 PUFFS BID Diagnosis: ELECTROLYTE ABNORMALITY, ACUTE RENAL INJURY, DEHYDRATION, GENERLIZED WEAKNE 12/23/20 11:38 PT Eval & Treat (MD Order) ONCE Reason for Eval:: general weakness, hypokalemia, DEANN Diagnosis: HYPONATREMIA, HYPOKALEMIA, ACUTE RENAL INJURY, DEHYDRATION 12/24/20 02:15 Respiratory MDI UD Comment: Diagnosis: HYPONATREMIA, HYPOKALEMIA, ACUTE RENAL INJURY, DEHYDRATION - Discharge Discharge Date: 12/25/20 Disposition: Skilled Care @ [facility] Condition: Stable Prescriptions: No Action Pravastatin Sodium [Pravachol] 40 mg PO HS Omeprazole 40 mg PO DAILY Duloxetine HCl 30 mg [Cymbalta 30 MG Capsule] 60 mg PO DAILY Carvedilol 6.25 mg [Coreg 6.25 MG] 6.25 mg PO BID Hydrochlorothiazide 12.5 mg PO DAILY Furosemide 40 mg [Lasix 40 MG] 40 mg PO DAILY Docusate Sodium 100 mg [Colace 100 MG] 100 mg PO BID Losartan Potassium [Cozaar] 25 mg PO DAILY Potassium Chloride [K-Dur] 20 meq PO DAILY Tramadol HCl 50 mg [Ultram 50 mg] 50 mg PO TIDPRN PRN PRN Reason: Pain Metformin HCl 500 mg [Glucophage 500 MG] 500 mg PO DAILY Fluticasone/Umeclidin/Vilanter [Trelegy Ellipta 100-62.5-25] 1 each IH DAILY Additional Instructions: SNF ORDERS: DIABETIC DIET ACHS ACCU CHECKS CPAP @ HS PER HOME SETTINGS ( IF PATIENT REFUSES-THEN DO 2L/NC AT HS) PT/OT EVAL AND TREAT APPLY ANTIBIOTIC OINTMENT TO SKIN TEARS (LEFT ELBOW) BID AND KEEP COVERED WITH DRESSING *SEE ATTACHED MED LIST Follow up with: MAURA DUNLAP [Primary Care Provider] -
== END 2020-12-25 13:05 | DRG 683 ==
LOC: ED 17:47 → MED SURG 22:10 → OBSVTOIN 12-23 09:00
PROVIDERS: ADMIT Family Medicine; ATTEND Family Medicine
DX: N17.9 Acute kidney failure, unspecified (principal); E87.1 Hypo-osmolality and hyponatremia; R53.1 Weakness; E87.6 Hypokalemia; E86.0 Dehydration; R29.6 Repeated falls; M25.522 Pain in left elbow; Z79.899 Other long term (current) drug therapy; I11.0 Hypertensive heart disease with heart failure; E78.00 Pure hypercholesterolemia, unspecified; G47.30 Sleep apnea, unspecified; Z20.828 Contact with and (suspected) exposure to other viral communicable diseases
CPT/HCPCS: 0241U; 36000; 36415; 70551; 71045; 71100; 73080; 80048; 80053; 81001; 82947; 83036; 83735; 83880; 84132; 84484; 85025; 85027; 93005; 93041; 93268; 94640; 94660; 94760; 94762; 97110; 97161; 97530; 99285; G0378; J3480; J7609; A9270-GY

== ENCOUNTER 2021-02-02 02:56 | Emergency (ER) | payer MEDICARE, OTHER ==
--- NOTE | 2021-02-02 03:32 | ERPHSYRPT ---
- History of Present Illness Time Seen by Provider: 02/02/21 03:26 Source: patient Exam Limitations: no limitations Physician History: -year-old white male who rolled out of bed and hit his right side of the neck and right ear on the nightstand. He denies any loss of consciousness. He denies any other injury or pain anywhere but his right ear and the right side of his neck. He did note bleeding from the area Occurred: just prior to arrival Reason for Fall: slipped (rolled out of bed) Injuries/Pain Location: head, neck Loss of Consciousness: no loss of consciousness Severity of Pain-Max: mild Severity of Pain-Current: mild Modifying Factors: Improves With: nothing Associated Symptoms (Fall): denies symptoms Allergies/Adverse Reactions: No Known Drug Allergies Allergy (Verified 12/22/20 22:18) Home Medications: Omeprazole 40 mg PO DAILY 08/17/12 [History] Pravastatin Sodium [Pravachol] 40 mg PO HS 08/17/12 [History] Carvedilol 6.25 mg [Coreg 6.25 MG] 6.25 mg PO BID 08/23/19 [History] Duloxetine HCl 30 mg [Cymbalta 30 MG Capsule] 60 mg PO DAILY 08/23/19 [History] Hydrochlorothiazide 12.5 mg PO DAILY 10/02/19 [History] Docusate Sodium 100 mg [Colace 100 MG] 100 mg PO BID 12/22/20 [History] Fluticasone/Umeclidin/Vilanter [Trelegy Ellipta 100-62.5-25] 1 each IH DAILY 12/22/20 [History] Furosemide 40 mg [Lasix 40 MG] 40 mg PO DAILY 12/22/20 [History] Losartan Potassium [Cozaar] 25 mg PO DAILY 12/22/20 [History] Metformin HCl 500 mg [Glucophage 500 MG] 500 mg PO DAILY 12/22/20 [History] Potassium Chloride [K-Dur] 20 meq PO DAILY 12/22/20 [History] Tramadol HCl 50 mg [Ultram 50 mg] 50 mg PO TIDPRN PRN 12/22/20 [History] Hx Tetanus, Diphtheria Vaccination/Date Given: Yes Hx Influenza Vaccination/Date Given: Yes Hx Pneumococcal Vaccination/Date Given: Yes Travel Risk - Vaccine Status Have you recieved a Covid-19 vaccination: Yes Bar Tender: Moderna - Vaccination Dates Date of 2cond Vaccination (if applicable): 11/13/20 - Review of Systems Constitutional: No Fever, No Chills Eyes: No Symptoms Ears, Nose, & Throat: No Symptoms Respiratory: No Cough, No Dyspnea Cardiac: No Chest Pain, No Edema, No Syncope Abdominal/Gastrointestinal: No Abdominal Pain, No Nausea, No Vomiting, No Diarrhea Genitourinary Symptoms: No Dysuria Musculoskeletal: No Back Pain, No Neck Pain Skin: No Rash Neurological: No Dizziness, No Focal Weakness, No Sensory Changes Psychological: No Symptoms Endocrine: No Symptoms All Other Systems: Reviewed and Negative - Past Medical History Pertinent Past Medical History: Yes Neurological History: No Pertinent History ENT History: Cataracts Cardiac History: High Cholesterol, Hypertension Respiratory History: CHF, COPD, Emphysema, Pneumonia, Sleep Apnea Endocrine Medical History: Hypothyroidism Musculoskeletal History: Arthritis, Degenerative Disk Disease GI Medical History: GERD History: Renal Disease Psycho-Social History: Depression Male Reproductive Disorders: No Pertinent History - Past Surgical History Past Surgical History: Yes Neuro Surgical History: No Pertinent History Cardiac: Cardiac Catheterization Respiratory: No Pertinent History Gastrointestinal: Hernia Repair Genitourinary: Kidney Surgery Musculoskeletal: No Pertinent History Male Surgical History: No Pertinent History Other Surgical History: cyst removed from kidney 2006, bilatareral cataract surgery 2019 - Social History Smoking Status: Never smoker Exposure to second hand smoke: No Drug Use: none Patient Lives Alone: Yes - Hailey Coma Score Best Eye Response (Humphreys): (4) open spontaneously Best Verbal Response (Hailey): (5) oriented Best Motor Response (Humphreys): (6) obeys commands Humphreys Total: 15 - Physical Exam General Appearance: no apparent distress, alert Head Injury: active bleeding Eye Exam: PERRL/EOMI, eyes nml inspection ENT Exam: evidence of ENT injury (Superficial laceration over the tragus of the right ear) Neck Exam: supple, trachea midline, other (Facial abrasions to the right side of the neck) Respiratory/Chest Exam: normal breath sounds, No chest tenderness, No respiratory distress Cardiovascular Exam: normal heart sounds, regular rate/rhythm Gastrointestinal Exam: soft, normal bowel sounds, No tenderness Back Exam: normal inspection, normal range of motion Extremity Exam: normal inspection, normal range of motion Peripheral Pulses: carotid (R): 2+, carotid (L): 2+ Neurologic Exam: alert, oriented x 3, cooperative, normal mood/affect, nml cerebellar function, nml station & gait, No motor deficits, No sensory deficit - Course Nursing assessment & vital signs reviewed: Yes - Progress Progress Note: 02/02/21 03:30 The abrasions on the right side of the neck were cleaned by the nursing staff in the superficial small laceration to the tragus was also cleaned active bleeding was stopped with pressure. No sutures were required - Departure Departure Disposition: Home Clinical Impression: Abrasion of neck, Laceration of tragus of right ear Condition: Stable Critical Care Time: No Referrals: MAURA DUNLAP [Primary Care Provider] - Instructions: Wound Care (DC)
[2021-02-02] MEDS ORDERED: BACIGUENT PACKET TP ONE (03:37)
[2021-02-02] MEDS ORDERED: BACIGUENT PACKET ONE (03:39)
[2021-02-02 04:10] VITALS: BP 116/54; PULSE 71; O2SAT 96
== END 2021-02-02 04:09 | disposition home or self-care (01) ==
LOC: ED 02:56
DX: S10.91XA Abrasion of unspecified part of neck, initial encounter (principal); W18.12XA Fall from or off toilet with subsequent striking against object, initial encounter; Y93.89 Activity, other specified; Y92.89 Other specified places as the place of occurrence of the external cause; Z79.899 Other long term (current) drug therapy; I10 Essential (primary) hypertension; E78.00 Pure hypercholesterolemia, unspecified; I50.9 Heart failure, unspecified; J44.9 Chronic obstructive pulmonary disease, unspecified; R06.81 Apnea, not elsewhere classified; M19.90 Unspecified osteoarthritis, unspecified site
CPT/HCPCS: 99283; A9270-GY

== ENCOUNTER 2021-02-16 10:55 | Observation (INO) | payer MEDICARE, OTHER ==
[2021-02-16] MEDS ORDERED: Sodium Chloride 0.9% 1000 ML 1,000 ML IV SCH (11:15)
--- NOTE | 2021-02-16 11:29 | ERPHSYRPT ---
- History of Present Illness Time Seen by Provider: 02/16/21 11:24 Source: patient, family Exam Limitations: no limitations Patient Subjective Stated Complaint: recurrent falls Triage Nursing Assessment: pt to ED c/o recurrent falls, most recent yesterday. Daughter reports fall alert system which called EMS, pt was evaluated by EMS and did not wish to come to ED at that time. pt states now that he would like to figure out what is making him fall. pt has no pain/injuries from fall but states "my legs felt like jello and just didnt work." Physician History: Is an 86-year-old male who presents with his family from home with a complaint of recurring falls. He was seen for a fall of sorts February 02 when he rolled out of bed and hit the right side of his head and his neck on the nightstand. He has been falling frequently at home the most recent yesterday. His EMS alert sounded and brought EMS they evaluated him he did not want to be transported to the hospital yesterday. He comes in today desiring to know why he is falling so frequently and he states his legs feel like water. Family reports that he has recently had some changes in his blood pressure medicine and when that happens he seems to fall more often especially fluid medicine. Occurred: yesterday Reason for Fall: fell from standing pos Injuries/Pain Location: no injury Loss of Consciousness: no loss of consciousness Severity of Pain-Max: mild Severity of Pain-Current: mild Associated Symptoms (Fall): lightheadedness, trouble walking Allergies/Adverse Reactions: No Known Drug Allergies Allergy (Verified 02/02/21 03:34) Home Medications: Omeprazole 40 mg PO DAILY 08/17/12 [History] Pravastatin Sodium [Pravachol] 40 mg PO HS 08/17/12 [History] Carvedilol 6.25 mg [Coreg 6.25 MG] 6.25 mg PO BID 08/23/19 [History] Duloxetine HCl 30 mg [Cymbalta 30 MG Capsule] 60 mg PO DAILY 08/23/19 [History] Hydrochlorothiazide 12.5 mg PO DAILY 10/02/19 [History] Docusate Sodium 100 mg [Colace 100 MG] 100 mg PO BID 12/22/20 [History] Fluticasone/Umeclidin/Vilanter [Trelegy Ellipta 100-62.5-25] 1 each IH DAILY 12/22/20 [History] Furosemide 40 mg [Lasix 40 MG] 40 mg PO DAILY 12/22/20 [History] Losartan Potassium [Cozaar] 25 mg PO DAILY 12/22/20 [History] Metformin HCl 500 mg [Glucophage 500 MG] 500 mg PO DAILY 12/22/20 [History] Potassium Chloride [K-Dur] 20 meq PO DAILY 12/22/20 [History] Tramadol HCl 50 mg [Ultram 50 mg] 50 mg PO TIDPRN PRN 12/22/20 [History] Hx Tetanus, Diphtheria Vaccination/Date Given: Yes Hx Influenza Vaccination/Date Given: Yes Hx Pneumococcal Vaccination/Date Given: Yes Immunizations Up to Date: Yes Travel Risk - International Travel Have you traveled outside of the country in past 3 weeks: No - Coronavirus Screening Are you exhibiting any of the following symptoms?: No Close contact with a COVID-19 positive Pt in past 14-21 Days: No - Vaccine Status Have you recieved a Covid-19 vaccination: Yes Scourer: Moderna - Vaccination Dates Date of 2cond Vaccination (if applicable): October - Review of Systems Constitutional: Weakness, No Fever, No Chills Eyes: No Symptoms Ears, Nose, & Throat: No Symptoms Respiratory: Dyspnea, Dyspnea on Exertion (GALLARDO), No Cough Cardiac: No Chest Pain, No Edema, No Syncope Abdominal/Gastrointestinal: No Abdominal Pain, No Nausea, No Vomiting, No Diarrhea Genitourinary Symptoms: No Dysuria Musculoskeletal: Fall, No Back Pain, No Neck Pain Skin: No Symptoms, No Rash Neurological: Focal Weakness, No Dizziness, No Sensory Changes Psychological: No Symptoms Endocrine: No Symptoms Hematologic/Lymphatic: No Symptoms Immunological/Allergic: No Symptoms All Other Systems: Reviewed and Negative - Past Medical History Pertinent Past Medical History: Yes Neurological History: No Pertinent History ENT History: Cataracts Cardiac History: High Cholesterol, Hypertension Respiratory History: CHF, COPD, Emphysema, Pneumonia, Sleep Apnea Endocrine Medical History: Hypothyroidism Musculoskeletal History: Arthritis, Degenerative Disk Disease GI Medical History: GERD History: Renal Disease Psycho-Social History: Depression Male Reproductive Disorders: No Pertinent History - Past Surgical History Past Surgical History: Yes Neuro Surgical History: No Pertinent History Cardiac: Cardiac Catheterization Respiratory: No Pertinent History Gastrointestinal: Hernia Repair Genitourinary: Kidney Surgery Musculoskeletal: No Pertinent History Male Surgical History: No Pertinent History Other Surgical History: cyst removed from kidney 2006, bilatareral cataract surg [place] 2019 - Social History Smoking Status: Never smoker Exposure to second hand smoke: No Drug Use: none Patient Lives Alone: Yes - Nursing Vital Signs Nursing Vital Signs: Initial Vital Signs Temperature 98.8 F 02/16/21 11:13 Pulse Rate 80 02/16/21 11:13 Respiratory Rate 26 H 02/16/21 11:13 Blood Pressure 157/73 02/16/21 11:13 O2 Sat by Pulse Oximetry 94 L 02/16/21 11:13 Pain Scale Pain Intensity 0 - Clayton Coma Score Best Eye Response (Clayton): (4) open spontaneously Best Verbal Response (Hailey): (5) oriented Best Motor Response (Hailey): (6) obeys commands Clayton Total: 15 - Physical Exam General Appearance: mild distress Head Injury: no evidence of injury Eye Exam: PERRL/EOMI ENT Exam: airway nml Neck Exam: normal inspection, No tenderness Respiratory/Chest Exam: respiratory distress (Patient is tachypneic) Cardiovascular Exam: normal heart sounds, regular rate/rhythm Gastrointestinal Exam: soft, No tenderness, No distention, No guarding, No ecchymosis Back Exam: normal inspection, No vertebral tenderness Extremity Exam: normal inspection, normal range of motion, pelvis stable, No deformities Neurologic Exam: alert, oriented x 3, cooperative, sensation nml, motor weakness, No motor deficits Skin Exam: normal color, warm, dry SpO2 Interpretation: normal SpO2: 94 O2 Delivery: Room Air - Course Nursing assessment & vital signs reviewed: Yes EKG Interpreted by Me: RATE (80), Sinus Rhythm, NORMAL AXIS, Non-specific ST Changes, Other (minimal st depression ant) - Radiology Exams Chest X-ray Interpretation: Teleradiologist Report, Other (no acute findings) - CT Exams Chest CT Interpretation: Negative, Tele-radiologist Report Ordered Tests: Active Orders 24 hr Category Date Time Status [employer] Operations Manager STAT Care 02/16/21 11:14 Active EKG-ER Only STAT Care 02/16/21 11:13 Active IV Insertion STAT Care 02/16/21 11:13 Active Orthostatic Vital Signs STAT Care 02/16/21 11:17 Active CHEST 1 VIEW (PORTABLE) Stat Exams 02/16/21 11:14 Completed CHEST WITH CONTRAST [CT] Stat Exams 02/16/21 12:21 Completed CBC W DIFF Stat Lab 02/16/21 11:23 Completed CMP Stat Lab 02/16/21 11:23 Completed D-DIMER QUANTITATIVE Stat Lab 02/16/21 11:40 Completed INFLUENZA A+B DEION Stat Lab 02/16/21 11:40 Completed Lactic Acid Stat Lab 02/16/21 11:13 Completed MAGNESIUM Stat Lab 02/16/21 11:23 Completed NT PRO BNP Stat Lab 02/16/21 11:23 Completed PROTIME WITH INR Stat Lab 02/16/21 11:40 Completed PTT Stat Lab 02/16/21 11:40 Completed TROPONIN Q3H Lab 02/16/21 11:23 Completed TROPONIN Q3H Lab 02/16/21 13:39 Completed TROPONIN Q3H Lab 02/16/21 17:15 Ordered TROPONIN Q3H Lab 02/16/21 20:15 Ordered TROPONIN Q3H Lab 02/16/21 23:15 Ordered UA W/RFX UR CULTURE Stat Lab 02/16/21 11:43 Completed Medication Summary Generic Name Dose Route Start Last Admin Trade Name Freq PRN Reason Stop Dose Admin Sodium Chloride 1,000 mls @ 100 mls/hr 02/16/21 11:15 02/16/21 11:32 Sodium Chloride 0.9% 1000 Ml IV 03/18/21 11:14 100 mls/hr .Q10H SHRUTHI Administration Lab/Rad Data: Laboratory Result Diagrams 02/16/21 11:23 02/16/21 11:23 Laboratory Results 02/16/21 02/16/21 02/16/21 Range/Units 13:39 11:43 11:40 WBC (4.0-10.5) K/mm3 RBC (4.1-5.6) M/mm3 Hgb (12.5-18.0) gm/dl Hct (42-50) % MCV (78-100) fl MCH (26-32) pg MCHC (32-36) g/dl RDW (11.5-14.0) % Plt Count (150-450) K/mm3 MPV (7.5-11.0) fl Gran % (36.0-66.0) % Eos # (Auto) (0-0.5) Absolute Lymphs (auto) (1.0-4.6) Absolute Monos (auto) (0.0-1.3) Lymphocytes % (24.0-44.0) % Monocytes % (0.0-12.0) % Eosinophils % (0.00-5.0) % Basophils % (0.0-0.4) % Absolute Granulocytes (1.4-6.9) Basophils # (0-0.4) PT 13.2 H (9.4-12.5) SECONDS INR 1.12 (0.8-3.0) APTT 26.0 (25.1-36.5) SECONDS D-Dimer 2089 H* (215-500) ng/mL Sodium (137-145) mmol/L Potassium (3.5-5.1) mmol/L Chloride (98-107) mmol/L Carbon Dioxide (22-30) mmol/L Anion Gap (5-15) MEQ/L BUN (9-20) mg/dL Creatinine (0.66-1.25) mg/dL Estimated GFR ML/MIN Glucose (74-106) mg/dL Lactic Acid (0.4-2.0) Calcium (8.4-10.2) mg/dL Magnesium (1.6-2.3) mg/dL Total Bilirubin (0.2-1.3) mg/dL AST (17-59) U/L ALT (0-50) U/L Alkaline Phosphatase (38-126) U/L Troponin I < 0.012 (0.000-0.034) ng/mL NT-Pro-B Natriuret Pep (0-1800) pg/mL Serum Total Protein (6.3-8.2) g/dL Albumin (3.5-5.0) g/dL Urine Color YELLOW (YELLOW) Urine Appearance CLEAR (CLEAR) Urine pH 6.0 (5-6) Ur Specific [place] 1.016 (1.005-1.025) Urine Protein NEGATIVE (Negative) Urine Ketones NEGATIVE (NEGATIVE) Urine Blood NEGATIVE (0-5) Eden/ul Urine Nitrite NEGATIVE (NEGATIVE) Urine Bilirubin NEGATIVE (NEGATIVE) Urine Urobilinogen 4 (0-1) mg/dL Ur Leukocyte Esterase NEGATIVE (NEGATIVE) Urine WBC (Auto) NONE (0-5) /HPF Urine RBC (Auto) NONE (0-2) /HPF U Epithel Cells (Auto) NONE (FEW) /HPF Urine Bacteria (Auto) NONE (NEGATIVE) /HPF Urine Mucus (Auto) SLIGHT (NEGATIVE) /HPF Urine Culture Reflexed NO (NO) Urine Glucose NEGATIVE (NEGATIVE) mg/dL Influenza Type A Ag (NEGATIVE) Influenza Type B Ag (NEGATIVE) 02/16/21 02/16/21 02/16/21 Range/Units 11:40 11:23 11:23 WBC (4.0-10.5) K/mm3 RBC (4.1-5.6) M/mm3 Hgb (12.5-18.0) gm/dl Hct (42-50) % MCV (78-100) fl MCH (26-32) pg MCHC (32-36) g/dl RDW (11.5-14.0) % Plt Count (150-450) K/mm3 MPV (7.5-11.0) fl Gran % (36.0-66.0) % Eos # (Auto) (0-0.5) Absolute Lymphs (auto) (1.0-4.6) Absolute Monos (auto) (0.0-1.3) Lymphocytes % (24.0-44.0) % Monocytes % (0.0-12.0) % Eosinophils % (0.00-5.0) % Basophils % (0.0-0.4) % Absolute Granulocytes (1.4-6.9) Basophils # (0-0.4) PT (9.4-12.5) SECONDS INR (0.8-3.0) APTT (25.1-36.5) SECONDS D-Dimer (215-500) ng/mL Sodium 131 L (137-145) mmol/L Potassium 4.4 (3.5-5.1) mmol/L Chloride 96 L (98-107) mmol/L Carbon Dioxide 27 (22-30) mmol/L Anion Gap 13.2 (5-15) MEQ/L BUN 18 (9-20) mg/dL Creatinine 1.26 H (0.66-1.25) mg/dL Estimated GFR 58.0 ML/MIN Glucose 122 H (74-106) mg/dL Lactic Acid (0.4-2.0) Calcium 8.7 (8.4-10.2) mg/dL Magnesium 2.1 (1.6-2.3) mg/dL Total Bilirubin 0.60 (0.2-1.3) mg/dL AST 39 (17-59) U/L ALT 16 (0-50) U/L Alkaline Phosphatase 65 (38-126) U/L Troponin I < 0.012 (0.000-0.034) ng/mL NT-Pro-B Natriuret Pep 822 (0-1800) pg/mL Serum Total Protein 6.5 (6.3-8.2) g/dL Albumin 3.5 (3.5-5.0) g/dL Urine Color (YELLOW) Urine Appearance (CLEAR) Urine pH (5-6) Ur Specific [place] (1.005-1.025) Urine Protein (Negative) Urine Ketones (NEGATIVE) Urine Blood (0-5) Eden/ul Urine Nitrite (NEGATIVE) Urine Bilirubin (NEGATIVE) Urine Urobilinogen (0-1) mg/dL Ur Leukocyte Esterase (NEGATIVE) Urine WBC (Auto) (0-5) /HPF Urine RBC (Auto) (0-2) /HPF U Epithel Cells (Auto) (FEW) /HPF Urine Bacteria (Auto) (NEGATIVE) /HPF Urine Mucus (Auto) (NEGATIVE) /HPF Urine Culture Reflexed (NO) Urine Glucose (NEGATIVE) mg/dL Influenza Type A Ag NEGATIVE (NEGATIVE) Influenza Type B Ag NEGATIVE (NEGATIVE) 02/16/21 02/16/21 Range/Units 11:23 11:13 WBC 6.5 (4.0-10.5) K/mm3 RBC 3.45 L (4.1-5.6) M/mm3 Hgb 11.4 L (12.5-18.0) gm/dl Hct 35.1 L (42-50) % MCV 101.7 H (78-100) fl MCH 33.0 H (26-32) pg MCHC 32.5 (32-36) g/dl RDW 14.2 H (11.5-14.0) % Plt Count 196 (150-450) K/mm3 MPV 9.8 (7.5-11.0) fl Gran % 77.7 H (36.0-66.0) % Eos # (Auto) 0.05 (0-0.5) Absolute Lymphs (auto) 0.62 L (1.0-4.6) Absolute Monos (auto) 0.76 (0.0-1.3) Lymphocytes % 9.5 L (24.0-44.0) % Monocytes % 11.7 (0.0-12.0) % Eosinophils % 0.8 (0.00-5.0) % Basophils % 0.3 (0.0-0.4) % Absolute Granulocytes 5.07 (1.4-6.9) Basophils # 0.02 (0-0.4) PT (9.4-12.5) SECONDS INR (0.8-3.0) APTT (25.1-36.5) SECONDS D-Dimer (215-500) ng/mL Sodium (137-145) mmol/L Potassium (3.5-5.1) mmol/L Chloride (98-107) mmol/L Carbon Dioxide (22-30) mmol/L Anion Gap (5-15) MEQ/L BUN (9-20) mg/dL Creatinine (0.66-1.25) mg/dL Estimated GFR ML/MIN Glucose (74-106) mg/dL Lactic Acid 1.6 (0.4-2.0) Calcium (8.4-10.2) mg/dL Magnesium (1.6-2.3) mg/dL Total Bilirubin (0.2-1.3) mg/dL AST (17-59) U/L ALT (0-50) U/L Alkaline Phosphatase (38-126) U/L Troponin I (0.000-0.034) ng/mL NT-Pro-B Natriuret Pep (0-1800) pg/mL Serum Total Protein (6.3-8.2) g/dL Albumin (3.5-5.0) g/dL Urine Color (YELLOW) Urine Appearance (CLEAR) Urine pH (5-6) Ur Specific [place] (1.005-1.025) Urine Protein (Negative) Urine Ketones (NEGATIVE) Urine Blood (0-5) [place]/ul Urine Nitrite (NEGATIVE) Urine Bilirubin (NEGATIVE) Urine Urobilinogen (0-1) mg/dL Ur Leukocyte Esterase (NEGATIVE) Urine WBC (Auto) (0-5) /HPF Urine RBC (Auto) (0-2) /HPF U Epithel Cells (Auto) (FEW) /HPF Urine Bacteria (Auto) (NEGATIVE) /HPF Urine Mucus (Auto) (NEGATIVE) /HPF Urine Culture Reflexed (NO) Urine Glucose (NEGATIVE) mg/dL Influenza Type A Ag (NEGATIVE) Influenza Type B Ag (NEGATIVE) - Progress Progress: unchanged - Departure Departure Disposition: Observation Clinical Impression: Dyspnea, Generalized weakness Condition: Stable Critical Care Time: No Referrals: MAURA DUNLAP [Primary Care Provider] -
--- NOTE | 2021-02-16 11:37 | XRAY ---
Indication: Short of breath. Comparison: December 22, 2020. Portable chest remains underinflated with stable left hemidiaphragm elevation and left base subsegmental atelectasis/scarring. Remaining heart and lungs unremarkable. Bony thorax intact again with osteopenia and degenerative changes.
[2021-02-16 11:58] LABS: Appearance CLEAR (CLEAR); Bilirubin NEGATIVE (NEGATIVE); Blood NEGATIVE Ery/ul (0-5); Glucose NEGATIVE (NEGATIVE); Ketones NEGATIVE (NEGATIVE); Leukocyte Esterase NEGATIVE (NEGATIVE); Mucus SLIGHT /HPF (NEGATIVE); Nitrite NEGATIVE (NEGATIVE); Protein,Urine Dip NEGATIVE (Negative); Specific Gravity 1.016 (1.005-1.025); Urobilinogen 4 mg/dL (0-1)
[2021-02-16 11:58] LABS: INR 1.12 (0.8-3.0); PROTIME 13.2 SECONDS (9.4-12.5)
[2021-02-16 12:00] LABS: Absolute Neutrophil Ct (ANC) 5.07 (1.4-6.9); BASOPHIL % 0.3 % (0.0-0.4); Basophil (Absolute #) 0.02 (0-0.4); Eosinophil % 0.8 % (0.00-5.0); Eosinophil (Absolute #) 0.05 (0-0.5); Hematocrit 35.1 % (42-50); Hemoglobin 11.4 gm/dl (12.5-18.0); Lymphocyte (Absolute #) 0.62 (1.0-4.6); Lymphocytes % 9.5 % (24.0-44.0); Mean Cell Volume 101.7 fl (78-100); Mean Corpuscular Hgb Concent. 32.5 g/dl (32-36); Mean Platelet Volume 9.8 fl (7.5-11.0); Monocyte (Absolute #) 0.76 (0.0-1.3); Monocytes % 11.7 % (0.0-12.0); Neutrophil % 77.7 % (36.0-66.0); Platelet Count 196 K/mm3 (150-450); Red Blood Count 3.45 M/mm3 (4.1-5.6); Red Cell Distribution Width 14.2 % (11.5-14.0); White Blood Count 6.5 K/mm3 (4.0-10.5)
[2021-02-16 12:11] LABS: ALBUMIN 3.5 g/dL (3.5-5.0); ANION GAP 13.2 MEQ/L (5-15); BILIRUBIN,TOTAL 0.6 mg/dL (0.2-1.3); Calcium 8.7 mg/dL (8.4-10.2); Creatinine 1 1.26 mg/dL (0.66-1.25); MAGNESIUM 2.1 mg/dL (1.6-2.3); Potassium 4.4 mmol/L (3.5-5.1); Total Protein 6.5 g/dL (6.3-8.2)
[2021-02-16 12:33] LABS: INFLUENZA A NEGATIVE (NEGATIVE); INFLUENZA B NEGATIVE (NEGATIVE)
--- NOTE | 2021-02-16 13:57 | XRAY ---
Indication: Frequent falls. Elevated d-dimer. Multiple contiguous axial images obtained through the chest using 80 cc Isovue 370 contrast and PE protocol. Comparison: None There is good opacification of the pulmonary arteries to include the lobar and segmental branches. However mild respiration artifact especially lung bases limits evaluation of the more distal lobar and segmental branches. No obvious pulmonary embolus. Heart is not enlarged. Aorta is mildly arteriosclerotic without aneurysm/dissection. Small mediastinal and right hilar calcified nodes. No pathologic mediastinal/hilar lymphadenopathy. Small hiatal hernia. There is left hemidiaphragm elevation with bibasilar subsegmental atelectasis and scattered bilateral peripheral fibrosis/scarring. No suspicious pulmonary mass, infiltrate, or effusion. Bony thorax demonstrates osteopenia, mild degenerative changes throughout the spine, and superior L1 Schmorl node. Limited upper abdomen demonstrates 4.7 cm right mid renal cyst with adjacent anterior surgical clips. Incompletely visualized tiny mid abdomen mesenteric nodes with stranding favoring enteritis. Impression: 1. Pulmonary embolus evaluation limited by respiration artifact. No obvious pulmonary embolus. 2. Left hemidiaphragm elevation, bibasilar subsegmental atelectasis, scattered fibrosis/scarring, small hiatal hernia, chronic bony findings and old granulomatous disease. 3. Right renal cyst and mid abdomen mesenteric adenitis.
[2021-02-16] MEDS ORDERED: Lasix 40 MG/4 ML IV ONE (19:49)
[2021-02-16] MEDS ORDERED: ULTRAM 50 MG PO PRN (19:49)
[2021-02-16] MEDS ORDERED: BACTRIM DS TABLET PO SCH (20:00)
[2021-02-16] MEDS: HOLD METFORMIN PRODUCTS FOR 48 HOURS MC SCH (20:35)
[2021-02-16] MEDS ORDERED: ROCEPHIN 1 Gm-D5w 50 ml Bag** 1 G/50 ML IVPB IV SCH (21:00)
[2021-02-16] MEDS: Colace 100 MG PO SCH (21:13)
[2021-02-16] MEDS: ZOCOR 20MG PO SCH (21:13)
[2021-02-16] MEDS: Coreg 6.25 MG PO SCH (21:13)
[2021-02-17] MEDS: Klor Con 10 MEQ PO SCH (09:59)
[2021-02-17] MEDS: Coreg 6.25 MG PO SCH ×2 (09:59→21:02)
[2021-02-17] MEDS: KENALOG 0.1% CREAM 15 GM TP SCH ×2 (09:59→19:31)
[2021-02-17] MEDS: Colace 100 MG PO SCH ×2 (09:59→21:02)
[2021-02-17] MEDS: HOLD METFORMIN PRODUCTS FOR 48 HOURS MC SCH (10:00)
[2021-02-17] MEDS ORDERED: BACTRIM DS TABLET PO SCH (15:15)
[2021-02-17] MEDS ORDERED: Lasix 40 MG PO SCH (15:15)
[2021-02-17] MEDS: Lasix 40 MG PO SCH (15:53)
[2021-02-17] MEDS: Cymbalta 30 MG Capsule PO SCH (16:59)
[2021-02-17] MEDS: Protonix 40MG Tablet PO SCH (17:00)
[2021-02-17] MEDS: hydroDIURIL 25 MG PO SCH (17:00)
[2021-02-17] MEDS: ZOCOR 20MG PO SCH (21:02)
[2021-02-17] MEDS ORDERED: Zetia 10 MG PO SCH (22:00)
[2021-02-17] MEDS ORDERED: ROCEPHIN 1 Gm-D5w 50 ml Bag** 1 G/50 ML IVPB IV SCH (22:00)
[2021-02-18] MEDS ORDERED: PATIENT OWN MEDICATION IH SCH (07:00)
[2021-02-18 08:32] LABS: ALBUMIN 3.3 g/dL (3.5-5.0); ALKALINE PHOSPHATASE 73 U/L (38-126); ANION GAP 20.2 MEQ/L (5-15); BLOOD UREA NITROGEN 18 mg/dL (9-20); CHLORIDE 95 mmol/L (98-107); Calcium 8.1 mg/dL (8.4-10.2); Carbon Dioxide 27 mmol/L (22-30); Creatinine 1 1.02 mg/dL (0.66-1.25); EST GLOMERULAR FILTRATION RATE > 60.0 ML/MIN; Glucose 133 mg/dL (74-106); Potassium 3.6 mmol/L (3.5-5.1); SGOT/AST 35 U/L (17-59); SGPT/ALT 18 U/L (0-50); SODIUM 139 mmol/L (137-145); Total Protein 6.2 g/dL (6.3-8.2)
[2021-02-18 08:58] LABS: Hemoglobin 11.1 gm/dl (12.5-18.0); Mean Cell Volume 103.6 fl (78-100); Mean Corpuscular Hemoglobin 32.8 pg (26-32); Mean Corpuscular Hgb Concent. 31.7 g/dl (32-36); Mean Platelet Volume 9.9 fl (7.5-11.0); Platelet Count 182 K/mm3 (150-450); Red Blood Count 3.38 M/mm3 (4.1-5.6); Red Cell Distribution Width 14.5 % (11.5-14.0); White Blood Count 6.2 K/mm3 (4.0-10.5)
[2021-02-18] MEDS: Klor Con 10 MEQ PO SCH (09:22)
[2021-02-18] MEDS: Coreg 6.25 MG PO SCH (09:22)
[2021-02-18] MEDS: hydroDIURIL 25 MG PO SCH (09:22)
[2021-02-18] MEDS: Colace 100 MG PO SCH (09:22)
[2021-02-18] MEDS: Cymbalta 30 MG Capsule PO SCH (09:22)
[2021-02-18] MEDS: Protonix 40MG Tablet PO SCH (09:22)
[2021-02-18] MEDS: Lasix 40 MG PO SCH (09:22)
[2021-02-18] MEDS: KENALOG 0.1% CREAM 15 GM TP SCH (09:23)
[2021-02-18 09:45] LABS: ABSOLUTE NEUTROPHILS 2.8 (1.4-6.9); BAND 3 % (0.0-2.0); Eosinophil 5 % (0.00-3.0); Lymphocytes 37 % (24-44); Metamyelocyte 2 %; Monocyte 13 % (0.0-12.0); Neutrophils 40 % (36.-66.); Total Cells Counted 100
[2021-02-18 09:47] LABS: Platelet Estimate NORMAL (NORMAL)
[2021-02-18] MEDS ORDERED: NON-FORMULARY ITEM (Fluticasone/Umeclidin/Vilanter [Trelegy Ellipta 100-62.5-25] 1 EACH) IH SCH (10:00)
[2021-02-18] MEDS ORDERED: NON-FORMULARY ITEM (Hydrochlorothiazide [Hydrochlorothiazide] 12.5 MG) PO SCH (10:00)
[2021-02-18] MEDS: HOLD METFORMIN PRODUCTS FOR 48 HOURS MC SCH (10:47)
[2021-02-18] MEDS ORDERED: Glucophage 500 MG PO SCH (13:00)
[2021-02-18 13:05] VITALS: BP 131/61; PULSE 60; O2SAT 91
--- NOTE | 2021-03-05 08:49 | PCM.SSS ---
History of Present Illness - Chief Complaint Chief Complaint: Dyspnea, Fall, Generalized weakness, inadvertent overdose Date: 02/18/21 History of Present Illness: is a 86 year old male. Presented to ER with falls, and general weakness, Pt. noted he was fine just the day before, otherwise he has no noted complaints. Pt. did note that he had taken a nap prior to the incedent and awoke thinking it was 7 AM and hurried to take his morning meds only to later realize it was 7PM, thus doubling his medications that day. - Review of Systems Constitutional: Weakness Eyes: No Symptoms Ears, Nose, & Throat: No Symptoms Respiratory: No Cough, No Short Of Breath Cardiac: No Chest Pain, No Edema, No Syncope Abdominal/Gastrointestinal: No Abdominal Pain, No Nausea, No Vomiting, No Diarrhea Genitourinary Symptoms: No Dysuria Musculoskeletal: No Back Pain, No Neck Pain Skin: No Rash Neurological: No Dizziness, No Focal Weakness, No Sensory Changes Psychological: No Symptoms Endocrine: No Symptoms Hematologic/Lymphatic: No Symptoms Immunological/Allergic: No Symptoms Medications & Allergies Home Medications: Home Medication List Omeprazole 40 mg PO DAILY 08/17/12 [History Confirmed 02/16/21] Pravastatin Sodium [Pravachol] 40 mg PO HS 08/17/12 [History Confirmed 02/16/21] Carvedilol 6.25 mg [Coreg 6.25 MG] 6.25 mg PO BID 08/23/19 [History Confirmed 02/16/21] Duloxetine HCl 30 mg [Cymbalta 30 MG Capsule] 60 mg PO DAILY 08/23/19 [His tory Confirmed 02/16/21] Hydrochlorothiazide 12.5 mg PO DAILY 10/02/19 [History Confirmed 02/16/21] Docusate Sodium 100 mg [Colace 100 MG] 100 mg PO BID 12/22/20 [History Confirmed 02/16/21] Fluticasone/Umeclidin/Vilanter [Trelegy Ellipta 100-62.5-25] 1 each IH DAILY 12/22/20 [History Confirmed 02/16/21] Furosemide 40 mg [Lasix 40 MG] 40 mg PO DAILY 12/22/20 [History Confirmed 02/16/21] Metformin HCl 500 mg [Glucophage 500 MG] 500 mg PO DAILY 12/22/20 [History Confirmed 02/16/21] Potassium Chloride [K-Dur] 20 meq PO DAILY 12/22/20 [History Confirmed 02/16/21] Tramadol HCl 50 mg [Ultram 50 mg] 50 mg PO TIDPRN PRN 12/22/20 [History Confirmed 02/16/21] Ezetimibe 10 mg [Zetia 10 MG] 10 mg PO HS 02/16/21 [History Confirmed 02/16/21] Smz/Tmp Ds Tablet [Bactrim Ds Tablet] 1 tab PO Q12H 02/16/21 [History Confirmed 02/16/21] Allergies/Adverse Reactions: Allergies Allergy/AdvReac Type Severity Reaction Status Date / Time No Known Drug Allergies Allergy Verified 02/16/21 14:27 - Past Medical History Past Medical History: Yes Neurological History: No Pertinent History ENT History: Cataracts Cardiac History: High Cholesterol, Hypertension Respiratory History: CHF, COPD, Emphysema, Pneumonia, Sleep Apnea Endocrine Medical History: Hypothyroidism Musculoskelatal History: Arthritis, Degenerative Disk Disease GI Medical History: GERD History: Renal Disease Pyscho-Social History: Depression Male Reproductive Disorders: No Pertinent History - Past Surgical History Past Surgical History: Yes Neuro Surgical History: No Pertinent History Cardiac History: Cardiac Catheterization Respiratory Surgery: No Pertinent History GI Surgical History: Hernia Repair Genitourinary Surgical Hx: Kidney Surgery Musculskeletal Surgical Hx: No Pertinent History Male Surgical History: No Pertinent History Other Surgical History: cyst removed from kidney 2006, bilatareral cataract surgery 2019 - Social History Smoking Status: Former smoker Exposure to second hand smoke: No Alcohol: None Drug Use: none - Physical Exam General Appearance: no apparent distress, alert Neurologic Exam: alert, oriented x 3, cooperative, normal mood/affect, nml cerebellar function, nml station & gait, sensation nml, No motor deficits Eye Exam: PERRL/EOMI, eyes nml inspection Ears, Nose, Throat Exam: normal ENT inspection, pharynx normal, moist mucous membranes Neck Exam: normal inspection, non-tender, supple, full range of motion Respiratory Exam: normal breath sounds, lungs clear, No respiratory distress Cardiovascular Exam: regular rate/rhythm, normal heart sounds, normal peripheral pulses Gastrointestinal/Abdomen Exam: soft, normal bowel sounds, No tenderness, No mass Back Exam: normal inspection, No CVA tenderness, No vertebral tenderness Extremity Exam: normal inspection, normal range of motion, pelvis stable Skin Exam: normal color, warm, dry, No rash Lymphatic Exam: No adenopathy Assessment/Plan (1) Fall Status: Acute Qualifiers: Code(s): W19.XXXA - UNSPECIFIED FALL, INITIAL ENCOUNTER (2) Generalized weakness Status: Acute Code(s): R53.1 - WEAKNESS (3) Dyspnea Status: Acute Code(s): R06.00 - DYSPNEA, UNSPECIFIED Hospital Summary - Hospital Course Hospital Course: Pt. was feeling much better and continued to improve after the inadvertent overdose medications wore off, it was felt he was stable and he agreed he was ready for discharge. - Vitals & Intake/Output Vital Signs: Vital Signs Temperature 97.7 F 02/18/21 12:00 Pulse Rate 60 02/18/21 12:00 Respiratory Rate 14 02/18/21 12:00 Blood Pressure 131/61 02/18/21 12:00 O2 Sat by Pulse Oximetry 91 L 02/18/21 12:00 - Lab Result Diagrams: 02/18/21 07:45 02/18/21 07:45 - Procedures and Test Procedures and Tests throughout Hospitalization: Therapy Orders & Screens 02/16/21 17:56 OT Screen per Nursing Assess ONCE Comment: Protocol Order Physician Instructions: Greater than 3 points order OT Admission Screening Reason For Exam: Triggered on Admission Diagnosis: Dyspnea Open Wound/Cellutlitis/Pressure Ulcers: Yes: BLE wrapped. Acute Fx/ORIF/Change in wt bearing status: Yes Severe MUSCULOSKELETAL pain: No ADL Dysfunction: No Acute CVA w/Hemiparesis/Hemiplegia: No Decreased Functional Mobility/Strength: Yes Sprain/Strain: No Acute Post-op Mobility Dysfunction: No Total Points: 11 PT Screen per Nursing Assess ONCE Comment: Protocol Order Physician Instructions: Greater than 3 points order PT Admission Screenin Reason For Exam: Triggered on Admission Diagnosis: Dyspnea Open Wound/Cellutlitis/Pressure Ulcers: Yes: BLE wrapped. Acute Fx/ORIF/Change in wt bearing status: Yes Severe MUSCULOSKELETAL pain: No ADL Dysfunction: No Acute CVA w/Hemiparesis/Hemiplegia: No Decreased Functional Mobility/Strength: Yes Sprain/Strain: No Acute Post-op Mobility Dysfunction: No Total Points: 11 RT Screen per Nursing Assess ONCE Comment: Protocol Order Physician Instructions: Greater than 3 points order RT Admission Screen Reason For Exam: Triggered on Admission Diagnosis: Dyspnea Diagnosis: Dyspnea Pneumonia: No Home O2: No Asthma: No CHF: Yes Home CPAP/BIPAP: Yes Home Nebs/MDI: Yes Total Points: 13 02/16/21 18:01 Respiratory MDI UD Comment: Diagnosis: Dyspnea 02/16/21 18:02 Respiratory Therapy Assessment DAILY Comment: Diagnosis: Dyspnea 02/16/21 19:50 PT Eval & Treat (MD Order) ONCE Reason for Eval:: wound care Diagnosis: Dyspnea 02/17/21 00:21 BiPap/CPAP ROUTINE Comment: CPAP 6 HOME Diagnosis: Dyspnea - Discharge Discharge Date: 02/18/21 Disposition: Home, Self-Care Condition: Stable Prescriptions: Continue Pravastatin Sodium [Pravachol] 40 mg PO HS Omeprazole 40 mg PO DAILY Duloxetine HCl 30 mg [Cymbalta 30 MG Capsule] 60 mg PO DAILY Carvedilol 6.25 mg [Coreg 6.25 MG] 6.25 mg PO BID Hydrochlorothiazide 12.5 mg PO DAILY Furosemide 40 mg [Lasix 40 MG] 40 mg PO DAILY Docusate Sodium 100 mg [Colace 100 MG] 100 mg PO BID Potassium Chloride [K-Dur] 20 meq PO DAILY Tramadol HCl 50 mg [Ultram 50 mg] 50 mg PO TIDPRN PRN PRN Reason: Pain Metformin HCl 500 mg [Glucophage 500 MG] 500 mg PO DAILY Fluticasone/Umeclidin/Vilanter [Trelegy Ellipta 100-62.5-25] 1 each IH DAILY Smz/Tmp Ds Tablet [Bactrim Ds Tablet] 1 tab PO Q12H Ezetimibe 10 mg [Zetia 10 MG] 10 mg PO HS Discontinued Furosemide 40 mg [Lasix 40 MG] 40 mg PO UD Instructions: Shortness of Breath (Dyspnea) (DC), Preventing Falls, Low Blood Pressure (DC) Follow up with: MAURA DUNLAP [Primary Care Provider] - 02/25/21 9:15 am Forms: Discharge Instructions
== END 2021-02-18 13:00 | disposition home or self-care (01) ==
LOC: ED 10:55 → MED SURG 16:48
PROVIDERS: ADMIT Family Medicine; ATTEND Family Medicine
DX: R06.00 Dyspnea, unspecified (principal); R79.1 Abnormal coagulation profile; Z20.828 Contact with and (suspected) exposure to other viral communicable diseases; Z79.899 Other long term (current) drug therapy; I10 Essential (primary) hypertension; E78.00 Pure hypercholesterolemia, unspecified; J44.9 Chronic obstructive pulmonary disease, unspecified; G47.30 Sleep apnea, unspecified; E03.9 Hypothyroidism, unspecified
CPT/HCPCS: 36000; 36415; 71045; 71260; 80053; 81001; 83605; 83735; 83880; 84484; 85025; 85379; 85610; 85730; 87400; 93005; 93041; 93268; 94640; 94660; 94760; 96360; 96361; 97162; 97530; 99285; G0378; U0003; A6457; J0696; J1940; A9270-GY